=== PATIENT | male | born 1980 | race Caucasian/White ===

== ENCOUNTER 2024-08-01 14:59 | Emergency (ER) | payer OTHER, SELFPAY ==
--- NOTE | ~2024-08-01 | CT_ITS ---
CLINICAL HISTORY: LLQ pain CT Abdomen and Pelvis W Contrast COMPARISON: None FINDINGS: Normal liver. Normal spleen. Normal kidneys. Normal adrenal glands. Normal pancreas. Distended gallbladder with adjacent fat stranding. No visible cholelithiasis. No biliary dilation. No evidence of bowel obstruction or colitis. Normal-appearing appendix. Poorly distended bladder. Mildly enlarged prostate. No ascites. No pneumoperitoneum. No lymphadenopathy. No acute fracture. No abdominal aortic aneurysm. IMPRESSION: Findings suspicious for acute cholecystitis. Please correlate with clinical findings. Consider ultrasound if indicated. This document has been electronically signed by: Shaun Day MD on 08/01/2024 23:34:40
[2024-08-01 15:06] VITALS: BP 144/90; PULSE 111; RESP 18; TEMP 36.7; O2SAT 98; BMI 27.4
--- NOTE | 2024-08-01 15:14 | ED.GENADULT ---
HPI - General Adult General Chief complaint: Abdominal Pain Stated complaint: abd pain, pcp sent for CT scan Time Seen by Provider: 08/01/24 21:39 Source: patient Mode of arrival: ambulatory Limitations: no limitations History of Present Illness ED Provider: Dr. Samantha Platt HPI narrative: Patient comes to the emergency room complaining of 1 week left lower quadrant pain. Patient states that about a week ago he had 1 episode of diarrhea. Patient denies any significant pain at this time, no fever chills, no hematuria or dysuria. Patient states that occasionally he feels a bit of left-sided flank pain but it is intermittent. Denies hematuria. To patient's knowledge she has never had any abdominal surgeries or passed kidney stones Related Data Previous Rx's ?Medication ?Instructions ?Recorded hyoscyamine sulfate 0.125 mg tablet 0.125 mg PO QID PRN dyspepsia #14 08/02/24 tabs Allergies Allergy/AdvReac Type Severity Reaction Status Date / Time codeine Allergy Anaphylaxis Verified 08/01/24 15:07 Review of Systems Review of Systems: Constitutional : No Weight loss, No Fever, No Chills, No Night Sweats, No Fatigue, No Malaise ENT/Mouth : No Hearing loss, No Ear Pain, No Nasal Congestion, No Sinus Pain, No Hoarseness, No sore throat, No Rhinorrhea, No Swallowing Difficulty Eyes: No Eye Pain, No Swelling, No Redness, No Foreign Body, No Discharge, No Vision Changes Cardiovascular : No Chest Pain, No SOB, No Dyspnea on Exertion, No Orthopnea, No Edema, No Palpitations Respiratory : No Cough, No Sputum, No Wheezing, No Smoke Exposure, No Dyspnea Gastrointestinal : No Nausea, No Vomiting, had 1 episode of Diarrhea, No Constipation, complaining of left lower quadrant pain radiating towards the back, seems to be worse with eating. Genitourinary : no irregular bleeding, No Dysuria, No Urinary Frequency, No Hematuria, No Urinary Incontinence, No Urgency, complaining of mild intermittent Flank Pain, No Urinary Flow Changes, No Hesitancy Musculoskeletal : No joint pain, No Myalgias, No Joint Swelling Skin : No Skin Lesions, No rash Neuro : No Weakness, No Numbness, No Paresthesias, No Loss of Consciousness, No Dizziness, No Headache Psych : No Anxiety/Panic, No Depression, No SI/HI/AH/VH, No Social Issues, Heme/Lymph: No Bruising, No Bleeding,No Lymphadenopathy Endocrine : No Polyuria, No Polydipsia, No Temperature Intolerance [facility] Social History Social History Alcohol intake: current Alcohol intake frequency: holidays/special occasions only Smoked in Last 30 Days: No Use of substances other than those prescribed or required for medical reasons: No Advance Directives: No Advance Directives Information Provided: No Physical Exam ED Vital Signs: Vital Signs - 24 hr 08/01/24 15:06 08/01/24 21:43 08/02/24 00:06 Temperature 98.1 F 97.9 F 98.2 F Pulse Rate 111 H 98 76 Respiratory Rate 18 18 18 Blood Pressure 144/90 H 145/95 H 146/91 H Pulse Oximetry 98 100 96 Oxygen Delivery Method Room Air Room Air Room Air BMI result Body Mass Index 27.4 Const Other: Appearance: Alert. Oriented X3. No acute distress. Well-appearing Eyes: Pupils equal, round and reactive to light. ENT: Pharynx normal. Neck: Normal inspection. Neck supple. No lymph nodes noted. No crepitus CVS: Normal heart rate and rhythm. Pulses normal. Normal S1 and S2 Respiratory: No respiratory distress. Breath sounds normal. No Wheezing. No rales Abdomen: Soft and nontender. No rigidity. No distention. No rebound no guarding, no CVA tenderness Skin: Skin warm and dry. Normal skin color. Normal skin turgor. Extremities: No lower extremity edema. No Lacerations. No Rash Neuro: Oriented X 3. No motor deficit. No sensory deficit. Moving all extremities. No slurred speech. CN 2 through 12 grossly intact Psych: calm, cooperative, normal affect Course Course Course Narrative: RME, this is a rapid medical exam performed by Mikhail Joel please refer to primary provider for complete H&P- 44-year-old male presents for evaluation abdominal pain in the left lower quadrant in his worse after eating. He reports that his doctor sent him here for a CT scan as outpatient testing is delayed hour about a week Medications Administered Discontinued Medications Generic Name Dose Route Start Last Admin Trade Name Freq PRN Reason Stop Dose Admin Iohexol 85 ml 08/01/24 22:28 08/01/24 22:29 Iohexol 350 Mg/Ml 100 Ml Infus..Btl IV 08/01/24 22:29 85 ml ONCE ONE Administration Medical Decision Making Medical Decision Making [facility] Narrative: My interpretation of labs: Normal hematology, normal white blood cell count, normal chemistry. Normal LFTs, normal lipase CT scan: Fundus suspicious for acute cholecystitis. -However, patient has no epigastric or right upper quadrant pain. Patient has negative Baldwin's sign. Patient's LFTs are normal -clinically, patient has no signs of acute cholecystitis. Patient states that even the left lower quadrant pain which she had before is not as bad. Patient states that his PCP sent a prescription for him Discussed with the patient that if in the future he has any epigastric or right lower quadrant pain with eating or has any other upper abdominal pain, he needs to follow-up with his PCP or return to the emergency room. Differential Diagnosis Differential Diagnoses: The differential diagnosis associated with the presentation includes (Diverticulitis, SBO, colitis) Lab Data [facility] Lab Attestation statement: I reviewed the patient's lab results. 08/01/24 17:05 08/01/24 17:05 Labs: Lab Results 08/01/24 08/01/24 Range/Units 17:05 22:34 WBC 9.6 (4.8-10.8) X10*3/uL RBC 5.74 (4.60-5.80) X10*6/uL Hgb 16.5 (14.0-18.0) g/dl Hct 48.0 (42.0-52.0) % MCV 83.6 (80.0-98.0) fL MCH 28.7 (27.0-33.0) pg MCHC 34.4 (31.0-36.0) g/dl RDW 12.4 (11.0-16.0) % Plt Count 222 (160-400) X10*3/uL MPV 9.0 L (9.4-12.4) fL Immature Gran % (Auto) 0.5 H (0.0-0.4) % Neut % (Auto) 68.1 (45-73) % Lymph % (Auto) 21.8 (20-40) % [place] % (Auto) 8.5 (2-11) % Eos % (Auto) 0.9 (0-4) % Baso % (Auto) 0.2 (0-2) % Lymph # (Auto) 2.1 (1.2-4.9) X10*3/uL [place] # (Auto) 0.8 (0.1-1.2) X10*3/uL Eos # (Auto) 0.1 (0.0-0.4) X10*3/uL Baso # (Auto) 0.0 (0.0-0.2) X10*3/uL Abs Immat Gran (auto) 0.05 H (0.00-0.03) X10*3/uL Absolute Neuts (auto) 6.6 (2.0-8.3) x10*3/uL Absolute Nucleated RBC 0.000 (0.0-0.012) X10*3/uL Nucleated RBC % (auto) 0.0 (0.0-0.2) /100WBC Sodium 138 (135-145) mmol/L Potassium 4.5 (3.3-5.1) mmol/L Chloride 109 H (96-108) mmol/L Carbon Dioxide 25 (22-29) mmol/L Anion Gap 9 L (12-20) BUN 11 (9-16) mg/dL Creatinine 0.95 (0.5-1.4) mg/dL Estim Creat Clear Calc 94.0 Estimated GFR > 60 Random Glucose 98 (60-115) mg/dL Calcium 9.1 (8.4-10.2) mg/dL Total Bilirubin 0.6 (0.0-1.0) mg/dL AST 20 (5-37) U/L ALT 30 (0-40) U/L Alkaline Phosphatase 97 (39-117) U/L Total Protein 8.0 (6.5-8.0) g/dL Albumin 4.5 (3.5-5.0) g/dL Lipase 29 (8-78) U/L Urine Color Dark Yellow Urine Appearance Clear Urine pH 5.0 (5.0-9.0) Ur Specific [place] >= 1.030 H (1.005-1.025) Urine Protein Trace (Neg-Trace) mg/dL Urine Glucose (UA) Negative (Negative) mg/dL Urine Ketones 40 (Negative) mg/dL Urine Blood Negative (Negative) Urine Nitrite Negative (Negative) Ur Leukocyte Esterase Negative (Negative) Urine RBC 0-2 (0-2) /HPF Urine WBC 0-5 (0-5) /HPF Ur Squamous Epith Cells 0-2 (0-2) /HPF Urine Bacteria None Seen (None Seen) Hyaline Casts 0-2 (0-2) /LPF Independent Interpretation I performed an independent interpretation of an: CT Scan Radiology Impression Discussion of test interpretation with radiology: I have reviewed the radiologist's reading. Radiologist Impression: Normal liver. Normal spleen. Normal kidneys. Normal adrenal glands. Normal pancreas. Distended gallbladder with adjacent fat stranding. No visible cholelithiasis. No biliary dilation. No evidence of bowel obstruction or colitis. Normal-appearing appendix. Poorly distended bladder. Mildly enlarged prostate. No ascites. No pneumoperitoneum. No lymphadenopathy. No acute fracture. No abdominal aortic aneurysm. IMPRESSION: Findings suspicious for acute cholecystitis. Please correlate with clinical findings. Consider ultrasound if indicated. Discharge Plan Discharge Clinical Impression: Abdominal pain Patient Disposition: Home, Self-Care Instructions: Abdominal Pain (ED) Additional Instructions: Please follow-up with your primary care physician tomorrow. If you have any worsening or new symptoms, please return to the emergency room or call 911 Prescriptions: New hyoscyamine sulfate 0.125 mg tablet 0.125 mg PO QID PRN (Reason: dyspepsia) Qty: 14 0RF Print Language: Serbian
[2024-08-01 17:09] LABS: MANUAL DIFF FLAG NO
[2024-08-01 17:13] LABS: Basophils Percent Auto 0.2 % (0-2); Eosinophils Absolute Auto 0.1 X10*3/uL (0.0-0.4); Eosinophils Percent Auto 0.9 % (0-4); Hemoglobin 16.5 g/dl (14.0-18.0); Imm Gran Abs Auto 0.05 X10*3/uL (0.00-0.03); Imm Gran Pct Auto 0.5 % (0.0-0.4); Lymphocytes Absolute Auto 2.1 X10*3/uL (1.2-4.9); Lymphocytes Percent Auto 21.8 % (20-40); Mean Corpuscular HGB Conc 34.4 g/dl (31.0-36.0); Mean Corpuscular Hemoglobin 28.7 pg (27.0-33.0); Mean Corpuscular Volume 83.6 fL (80.0-98.0); Monocytes Absolute Auto 0.8 X10*3/uL (0.1-1.2); Monocytes Percent Auto 8.5 % (2-11); Neutrophils Absolute Auto 6.6 x10*3/uL (2.0-8.3); Neutrophils Percent Auto 68.1 % (45-73); Platelet Count 222 X10*3/uL (160-400); Red Blood Count 5.74 X10*6/uL (4.60-5.80); Red Cell Distribution Width 12.4 % (11.0-16.0); White Blood Count 9.6 X10*3/uL (4.8-10.8)
[2024-08-01 17:27] LABS: Alanine Aminotransferase 30 U/L (0-40); Albumin Level 4.5 g/dL (3.5-5.0); Alkaline Phosphatase 97 U/L (39-117); Anion Gap 9 (12-20); Aspartate Amino Transferase 20 U/L (5-37); Bilirubin Total 0.6 mg/dL (0.0-1.0); Blood Urea Nitrogen 11 mg/dL (9-16); Calcium 9.1 mg/dL (8.4-10.2); Carbon Dioxide 25 mmol/L (22-29); Chloride 109 mmol/L (96-108); Estimated Glomerular Filt Rate > 60; Glucose Random 98 mg/dL (60-115); Lipase 29 U/L (8-78); Potassium 4.5 mmol/L (3.3-5.1); Sodium 138 mmol/L (135-145)
[2024-08-01 21:43] VITALS: BP 145/95; PULSE 98; RESP 18; TEMP 36.6; O2SAT 100
[2024-08-01] MEDS: iohexoL 350 MG/ML 100 ML INFUS..BTL 85 ML IV (22:29)
[2024-08-01 22:40] LABS: Appearance Urine Clear; Color Urine Dark Yellow; Glucose Urine UA Negative (Negative); Leukocyte Esterase Urine Negative (Negative); Nitrite Urine Negative (Negative); Specific Gravity - Urine >= 1.030 (1.005-1.025); Urine Blood Negative (Negative); Urine Ketones 40 mg/dL (Negative); Urine Protein Trace mg/dL (Neg-Trace)
[2024-08-01 22:42] LABS: Bacteria Urine None Seen (None Seen); Hyaline Casts Urine 0-2 /LPF (0-2); RBC Urine 0-2 /HPF (0-2); Squamous Epithelial Cell Urine 0-2 /HPF (0-2); WBC Urine 0-5 /HPF (0-5)
[2024-08-02 00:06] VITALS: BP 146/91; PULSE 76; RESP 18; TEMP 36.8; O2SAT 96
[2024-08-02] MEDS: Dicyclomine HCl 10 MG CAPSULE PO (01:26)
[2024-08-02 01:29] VITALS: BP 148/88; PULSE 78; RESP 16; TEMP 36.7; O2SAT 96
== END 2024-08-02 01:31 | disposition home or self-care (01) ==
PROVIDERS: Physician Assistant; Emergency Provider Emergency Medicine; PCP Internal Medicine
DX: R10.32 Left lower quadrant pain (principal)
CPT/HCPCS: 36415; 74177; 80053; 81001; 83690; 85025; 99284; Q9967

== ENCOUNTER → 2024-08-01 15:15 | Outpatient (BNV) | payer OTHER, SELFPAY | PROVIDERS: Emergency Provider Emergency Medicine; PCP Internal Medicine; Visit Provider Radiology Diagnostic Radiology | DX: R10.32 Left lower quadrant pain (principal) | CPT/HCPCS: 74177 ==

== ENCOUNTER 2024-08-19 12:10 | Inpatient (IN) | payer OTHER, SELFPAY ==
[2024-08-19] VITALS (14 sets, daily range): BP systolic 114–135; BP diastolic 67–85; PULSE 74–123; RESP 12–28; TEMP 36.2–37.1; O2SAT 96–99; BMI 26.4
--- NOTE | ~2024-08-19 | XR_ITS ---
EXAMINATION: XR CHEST CLINICAL INFORMATION: s/p ERCP, with low )2 sats COMPARISON: None available. TECHNIQUE: Frontal view of the chest was obtained. FINDINGS: Linear opacities lung bases. Poor inspiration. Prominence of the interstitial markings. No pneumothorax. Cardiomediastinal silhouette appears prominent. Altered level thoracic and upper lumbar spondylosis. Gas-filled prominent small and large intestine with air-fluid levels in the left upper quadrant abdomen. XR/XR chest 1V IMPRESSION: Consider pulmonary edema and bilateral lung bases atelectasis. Cardiomegaly versus pericardial effusion. Ileus versus bowel obstruction. Electronically signed by: Yrn Marina MD 08/21/2024 01:00 PM EST
--- NOTE | ~2024-08-19 | XR_ITS ---
EXAMINATION: XR ABDOMEN KUB CLINICAL INDICATION: s/p ERCP with low O2 sat COMPARISON: None available. TECHNIQUE: AP view of the abdomen. FINDINGS: There is moderate gas seen throughout the small bowel loops and colon following ERCP. Minimal oral contrast is seen in the right colon. The postsurgical changes along the right upper mid quadrant from recent intervention. There is excreted urinary contrast opacifying the bladder which is normal caliber. No no bony abnormality seen. A biliary stent is seen in the right upper quadrant. Gallbladder removed with a drainage catheter in the gallbladder fossa XR/XR KUB IMPRESSION: Moderate gas in the colon likely secondary ERCP with new biliary stent in place. Gallbladder has been surgically removed with surgical drainage in the gallbladder fossa. Electronically signed by: Manuel Shipman MD 08/21/2024 01:35 PM [facility]
--- NOTE | ~2024-08-19 | US_ITS ---
EXAMINATION: US ABDOMEN LIMITED HISTORY: RUQ pain, +murphys, ?acute parag TECHNIQUE: Real-time grayscale ultrasound imaging of the right upper quadrant was performed and images were reviewed. COMPARISON: Correlation is made with a CT of the abdomen with contrast dated 08/01/2024. FINDINGS: Liver: The right lobe of the liver measures 15.1 cm in size. The left lobe of the liver measures 8.9 cm in size. The liver demonstrates normal homogeneous echotexture. No focal mass or intrahepatic biliary ductal dilatation is identified. No focal mass or intrahepatic biliary ductal dilatation is identified. There is normal hepatopedal flow in the portal vein. Gallbladder and biliary tree: The gallbladder is distended and demonstrates echogenic bile. There is a shadowing calcification in the region of the gallbladder neck which likely represents a calculus. The gallbladder wall is thick measuring up to 5 mm in thickness. There is no pericholecystic fluid. There is a positive sonographic Baldwin sign according to the technologist. The common bile duct is normal in caliber measuring 3 mm. Right Kidney: The right kidney measures 10.1 cm in length. The right kidney is unremarkable, without evidence of masses, hydronephrosis, or calculi. Pancreas: The pancreatic head, neck, and body are unremarkable. The pancreatic tail is obscured by bowel gas. Abdominal aorta and inferior vena cava: The visualized portions of the abdominal aorta and inferior vena cava are normal in caliber. There is no free fluid in the right upper quadrant. US/US abdomen limited IMPRESSION: 1. Findings consistent with acute cholecystitis as described. 2. Mild hepatomegaly. Electronically signed by: Jean Carlos Tee MD 08/19/2024 02:42 PM [facility] [place]
--- NOTE | ~2024-08-19 | XR_ITS ---
EXAMINATION: XR CHEST 2 VIEWS HISTORY: follow up; eval atelectasis vs edema COMPARISON: Comparison is made with the prior examination dated 08/21/2024. FINDINGS: PA and lateral views of the chest are submitted. There are low lung volumes. There is linear subsegmental atelectasis at both lung bases. The upper lung zones are clear. There is no pleural effusion, pneumothorax, or pulmonary vascular congestion. The heart is normal in size. The bones are intact. There is gas throughout the colon and the visualized upper abdomen. XR/XR chest 2V IMPRESSION: Low lung volumes. Bibasilar subsegmental atelectasis. Electronically signed by: Jean Carlos Tee MD 08/22/2024 07:47 AM EST
--- NOTE | ~2024-08-19 | FL_ITS ---
EXAMINATION: FL GUIDANCE ONLY HISTORY: INTRAOP CHOLANGIOGRAM COMPARISON: Correlation is made with a CT of the abdomen with contrast dated 08/01/2024. TECHNIQUE: Fluoroscopy time: 60 seconds. Cumulative Dose: 21.32 mGy. Images: 16. FINDINGS: Images demonstrate opacification of the common bile duct which is normal in caliber. Multiple small filling defects are noted which likely represent air bubbles. Small calculi cannot be excluded. The intrahepatic bile ducts are normal in caliber. Contrast is seen in the duodenum. There is a large amount of extravasated contrast noted from the region of the gallbladder fossa. FL/FL guidance in OR IMPRESSION: Fluoroscopy during procedure. Please see procedure report for additional information. Electronically signed by: Jean Carlos Tee MD 08/21/2024 08:53 AM [facility]
--- NOTE | ~2024-08-19 | CT_ITS ---
EXAMINATION: CT ABDOMEN PELVIS WITH IV CONTRAST HISTORY: Status post cholecystectomy. Evaluate for biloma. COMPARISON: Comparison is made with the prior examination dated 08/01/2024. TECHNIQUE: CT scan of the abdomen and pelvis was performed following administration of 85 mL Omnipaque 350 using standard departmental protocol. Coronal and sagittal reformatted images were generated and reviewed. The patient received oral contrast material. This CT exam was performed with one or more of the following dose reduction techniques: automated exposure control, adjustment of the mA and/or kV according to patient size, use of iterative reconstruction technique. DLP: 739 mGy-cm FINDINGS: LOWER CHEST: There are airspace opacities at both lung bases consistent with atelectasis or pneumonia. There are trace bilateral pleural effusions. CARDIOVASCULATURE: The heart is normal in size. There is no pericardial effusion. LIVER: The liver is normal in size and contour. No liver mass is identified. The hepatic and portal veins are patent. GALLBLADDER / BILE DUCTS: The patient is status post cholecystectomy. A CHRISTOPHER drain is seen in the gallbladder fossa. There is a small amount of fluid in the gallbladder fossa. No loculated collection is seen. SPLEEN: The spleen is normal in size. No focal splenic lesion is identified. PANCREAS: The pancreas is unremarkable in appearance. ADRENAL GLANDS: Within normal limits. KIDNEYS/RETROPERITONEUM: No renal calculi are identified. There is no hydronephrosis. No renal masses are identified. LYMPH NODES: No abdominal or pelvic lymphadenopathy. VASCULATURE: The abdominal aorta is normal in caliber. MESENTERY/PERITONEUM: There is a small amount of free intraperitoneal gas, consistent with the recent surgery. No free fluid is seen. STOMACH: The stomach is unremarkable. SMALL BOWEL: There is mild diffuse dilatation of small bowel loops. A small amount of oral contrast is seen in the distal ileum. Findings likely represent ileus. COLON: There is gas throughout the colon, also compatible with ileus. APPENDIX: The appendix is unremarkable in appearance and is filled with oral contrast material. URINARY BLADDER/PELVIC ORGANS: The urinary bladder is unremarkable. The prostate is normal in size. BONES / SOFT TISSUES: No suspicious bony or soft tissue abnormalities. CT/CT abdomen pelvis w IV con IMPRESSION: 1. Status post cholecystectomy. CHRISTOPHER drain and a small amount of fluid in the gallbladder fossa without evidence of a loculated fluid collection. 2. Findings suggestive of ileus as described. 3. Airspace opacity at the lung bases consistent with atelectasis or pneumonia. Electronically signed by: Jean Carlos Tee MD 08/21/2024 10:52 AM [facility]
--- NOTE | ~2024-08-19 | FL_ITS ---
EXAMINATION: FL GUIDANCE ONLY HISTORY: ERCP COMPARISON: Correlation is made with a contrast-enhanced CT of the abdomen performed earlier in the day.. TECHNIQUE: Fluoroscopy time: 104.1 seconds. Cumulative Dose: 34.20 mGy. Images: 7. FINDINGS: Images demonstrate opacification of the common bile duct and intrahepatic biliary radicles. There is no dilatation of the common bile duct. No definite filling defects is seen. The final images demonstrate a stent in place. FL/FL guidance in OR IMPRESSION: Fluoroscopy during procedure. Please see procedure report for additional information. Electronically signed by: Jean Carlos Tee MD 08/21/2024 02:55 PM [facility]
--- NOTE | 2024-08-19 12:27 | ED.ABDPAIN ---
HPI - Abdominal Pain General Chief Complaint: Abdominal Pain Stated Complaint: Abd pain, sent by Time Seen by Provider: 08/19/24 12:38 History of Present Illness ED Provider: Dr. Akins HPI narrative: 44 y/o M patient; without significant PMH; presents from home with report of significant RUQ abdominal pain associated with nausea this morning. He states he has had the pain intermittently for approx 5 weeks. He had a CT scan which showed acute cholecystitis on 08/01 and was referred for an US as well as follow up with Dr. Ross. The patient presents today due to worsening of his symptoms. He otherwise denies: fever or chills, SOB, cough/congestion, diarrhea. Related Data Previous Rx's ?Medication ?Instructions ?Recorded hyoscyamine sulfate 0.125 mg tablet 0.125 mg PO QID PRN dyspepsia #14 08/02/24 tabs Allergies Allergy/AdvReac Type Severity Reaction Status Date / Time codeine Allergy Anaphylaxis Verified 08/19/24 12:31 Review of Systems Review of Systems Yes all other systems are reviewed and are negative [facility] Past Medical History Attestation statement: The following information was validated with the patient. Source: old records reviewed Social History Social History Alcohol intake: current Alcohol intake frequency: holidays/special occasions only Smoked in Last 30 Days: No Use of substances other than those prescribed or required for medical reasons: No Advance Directives: No Advance Directives Information Provided: Yes Physical Exam ED Vital Signs: Vital Signs - 24 hr 08/19/24 12:27 08/19/24 14:33 Temperature 98.0 F 98.7 F Pulse Rate 123 H 74 Respiratory Rate 16 16 Blood Pressure 122/83 124/76 Pulse Oximetry 99 96 Oxygen Delivery Method Room Air BMI result Body Mass Index 26.4 Patient is afebrile, mildly tachycardic, and hemodynamically stable. Const General: cooperative HENMT Head: Yes normal to inspection and Yes atraumatic Eyes General: appearance normal, both eyes and all related structures Pupils: Equal, round and reactive pupils present EOM: EOMs intact bilaterally Neck Neck: Yes normal visual inspection, Yes full ROM, Yes supple and No tender Chest Chest palpation & inspection: normal inspection of the chest and normal palpation of entire chest wall Resp Effort & Inspection: normal respiratory effort, able to speak in complete sentences, no cough and no respiratory distress Auscultation: clear to auscultation bilaterally Cardio Rate: tachycardic Rhythm: regular rhythm Peripheral pulses: Peripheral pulses 2+ throughout GI Other: + RUQ abd tenderness Inspection: No Abdominal wall edema and No distended Palpation (GI): Soft to palpation, not firm, no guarding and not rigid Auscultation: normal bowel sounds Back/Spine/Pelvis Back: No back tenderness Neuro Cranial nerves: Yes Equal, round and reactive pupils present Course Course Course Narrative: This is a Rapid Medical Examination (RME) performed by Elvis Fuentes PA-C in triage. Full HPI, ROS, assessment and treatment plan per primary provider in the Main ED. 44 yo male here for eval of intermittent RUQ pain x3-4 weeks, worsening acutely today. had CT on 08/01/24 which showed findings concerning for acute cholecystitis. he was called w/ results and advised to f/u with gen surg outpatient. appointment scheduled for 08/29/24. called pcp today d/t worsening pain, advised to come to ED. assoc nausea, no vomiting. + diaphoretic, bent over in pain, guarding abdomen. 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 Reviewed triage work up. Provided symptom management with Zofran and Toradol, patient is NPO. Labs reviewed. No leukocytosis. LA 2.2 - ordered for 1L IVF. Surgery consulted. US consistent with acute parag. Started on Zosyn. Plan: Admit to surgery Condition: Stable Medical Decision Making Lab Data 08/19/24 12:53 08/19/24 12:53 Labs: Lab Results 08/19/24 Range/Units 12:53 WBC 9.3 (4.8-10.8) X10*3/uL RBC 5.66 (4.60-5.80) X10*6/uL Hgb 16.0 (14.0-18.0) g/dl Hct 47.5 (42.0-52.0) % MCV 83.9 (80.0-98.0) fL MCH 28.3 (27.0-33.0) pg MCHC 33.7 (31.0-36.0) g/dl RDW 12.1 (11.0-16.0) % Plt Count 255 (160-400) X10*3/uL MPV 9.1 L (9.4-12.4) fL Immature Gran % (Auto) 0.4 (0.0-0.4) % Neut % (Auto) 73.4 H (45-73) % Lymph % (Auto) 16.5 L (20-40) % [place] % (Auto) 9.0 (2-11) % Eos % (Auto) 0.5 (0-4) % Baso % (Auto) 0.2 (0-2) % Lymph # (Auto) 1.5 (1.2-4.9) X10*3/uL [place] # (Auto) 0.8 (0.1-1.2) X10*3/uL Eos # (Auto) 0.1 (0.0-0.4) X10*3/uL Baso # (Auto) 0.0 (0.0-0.2) X10*3/uL Abs Immat Gran (auto) 0.04 H (0.00-0.03) X10*3/uL Absolute Neuts (auto) 6.9 (2.0-8.3) x10*3/uL Absolute Nucleated RBC 0.000 (0.0-0.012) X10*3/uL Nucleated RBC % (auto) 0.0 (0.0-0.2) /100WBC Sodium 141 (135-145) mmol/L Potassium 4.0 (3.3-5.1) mmol/L Chloride 103 (96-108) mmol/L Carbon Dioxide 24 (22-29) mmol/L Anion Gap 18 (12-20) BUN 10 (9-16) mg/dL Creatinine 1.02 (0.5-1.4) mg/dL Estim Creat Clear Calc 87.5 Estimated GFR > 60 Random Glucose 150 H (60-115) mg/dL Lactic Acid 2.2 H* (0.5-2.0) mmol/L Calcium 9.3 (8.4-10.2) mg/dL Magnesium 2.0 (1.6-2.6) mg/dL Total Bilirubin 0.4 (0.0-1.0) mg/dL AST 18 (5-37) U/L ALT 22 (0-40) U/L Alkaline Phosphatase 87 (39-117) U/L Total Protein 8.1 H (6.5-8.0) g/dL Albumin 4.4 (3.5-5.0) g/dL Lipase 28 (8-78) U/L Radiology Impression Discussion of test interpretation with radiology: I have reviewed the radiologist's reading. Radiologist Impression: EXAMINATION: US ABDOMEN LIMITED HISTORY: RUQ pain, +murphys, ?acute parag TECHNIQUE: Real-time grayscale ultrasound imaging of the right upper quadrant was performed and images were reviewed. COMPARISON: Correlation is made with a CT of the abdomen with contrast dated 08/01/2024. FINDINGS: Liver: The right lobe of the liver measures 15.1 cm in size. The left lobe of the liver measures 8.9 cm in size. The liver demonstrates normal homogeneous echotexture. No focal mass or intrahepatic biliary ductal dilatation is identified. No focal mass or intrahepatic biliary ductal dilatation is identified. There is normal hepatopedal flow in the portal vein. Gallbladder and biliary tree: The gallbladder is distended and demonstrates echogenic bile. There is a shadowing calcification in the region of the gallbladder neck which likely represents a calculus. The gallbladder wall is thick measuring up to 5 mm in thickness. There is no pericholecystic fluid. There is a positive sonographic Baldwin sign according to the technologist. The common bile duct is normal in caliber measuring 3 mm. Right Kidney: The right kidney measures 10.1 cm in length. The right kidney is unremarkable, without evidence of masses, hydronephrosis, or calculi. Pancreas: The pancreatic head, neck, and body are unremarkable. The pancreatic tail is obscured by bowel gas. Abdominal aorta and inferior vena cava: The visualized portions of the abdominal aorta and inferior vena cava are normal in caliber. There is no free fluid in the right upper quadrant. US/US abdomen limited IMPRESSION: 1. Findings consistent with acute cholecystitis as described. 2. Mild hepatomegaly. Electronically signed by: Jean Carlos Tee MD 08/19/2024 02:42 PM [facility] Medications Administered Discontinued Medications Generic Name Dose Route Start Last Admin Trade Name Freq PRN Reason Stop Dose Admin Sodium Chloride 1,000 mls @ 999 mls/hr 08/19/24 13:45 08/19/24 13:37 Ns IV 08/19/24 14:45 999 mls/hr .Q1H1M JAMI Administration Ketorolac Tromethamine 15 mg 08/19/24 13:03 08/19/24 13:11 Ketorolac Tromethamine 15 Mg/Ml Vial IVPUSH 08/19/24 13:04 15 mg ONCE ONE Administration Ondansetron HCl 4 mg 08/19/24 13:03 08/19/24 13:11 Ondansetron Hcl 4 Mg/2 Ml Vial IVPUSH 08/19/24 13:04 4 mg ONCE ONE Administration Discharge Plan Discharge Patient Disposition: Admitted As Inpatient Prescriptions: No Action hyoscyamine sulfate 0.125 mg tablet 0.125 mg PO QID PRN (Reason: dyspepsia) Qty: 14 0RF Print Language: Vietnamese
[2024-08-19 13:03] LABS: MANUAL DIFF FLAG NO
[2024-08-19 13:05] LABS: Basophils Percent Auto 0.2 % (0-2); Eosinophils Absolute Auto 0.1 X10*3/uL (0.0-0.4); Eosinophils Percent Auto 0.5 % (0-4); Hematocrit 47.5 % (42.0-52.0); Imm Gran Abs Auto 0.04 X10*3/uL (0.00-0.03); Imm Gran Pct Auto 0.4 % (0.0-0.4); Lymphocytes Absolute Auto 1.5 X10*3/uL (1.2-4.9); Lymphocytes Percent Auto 16.5 % (20-40); Mean Corpuscular HGB Conc 33.7 g/dl (31.0-36.0); Mean Corpuscular Hemoglobin 28.3 pg (27.0-33.0); Mean Corpuscular Volume 83.9 fL (80.0-98.0); Mean Platelet Volume 9.1 fL (9.4-12.4); Monocytes Absolute Auto 0.8 X10*3/uL (0.1-1.2); Neutrophils Absolute Auto 6.9 x10*3/uL (2.0-8.3); Neutrophils Percent Auto 73.4 % (45-73); Platelet Count 255 X10*3/uL (160-400); Red Blood Count 5.66 X10*6/uL (4.60-5.80); Red Cell Distribution Width 12.1 % (11.0-16.0); White Blood Count 9.3 X10*3/uL (4.8-10.8)
[2024-08-19] MEDS: Ketorolac Tromethamine 15 MG/ML VIAL IVPUSH (13:11)
[2024-08-19] MEDS: ondansetron HCL 4 MG/2 ML VIAL IVPUSH ×2 (13:11→23:03)
[2024-08-19 13:22] LABS: Alanine Aminotransferase 22 U/L (0-40); Albumin Level 4.4 g/dL (3.5-5.0); Alkaline Phosphatase 87 U/L (39-117); Anion Gap 18 (12-20); Aspartate Amino Transferase 18 U/L (5-37); Bilirubin Total 0.4 mg/dL (0.0-1.0); Blood Urea Nitrogen 10 mg/dL (9-16); Calcium 9.3 mg/dL (8.4-10.2); Carbon Dioxide 24 mmol/L (22-29); Chloride 103 mmol/L (96-108); Creatinine Clr Calc Pharmacy 87.5; Estimated Glomerular Filt Rate > 60; Glucose Random 150 mg/dL (60-115); Lipase 28 U/L (8-78); Sodium 141 mmol/L (135-145); Total Protein 8.1 g/dL (6.5-8.0)
[2024-08-19 13:33] LABS: Lactic Acid 2.2 mmol/L (0.5-2.0)
[2024-08-19] MEDS: 0.9 % Sodium Chloride 1,000 ML 999 ML IV (13:37)
--- OUTSIDE RECORDS SUMMARY | 2024-08-19 13:52 | XMS_ITS | Clinical Summary ---
Author Organization [facility] Address [address] [place] [address] Care Team Providers Care Lead Painter Name Role Phone Iker Porras MD Primary Care Provider Source Comments PLEASE NOTE, if this patient is a minor, it may be UNLAWFUL to discuss sensitive information that is contained in these records (such as FAMILY PLANNING, MENTAL HEALTH or SUBSTANCE ABUSE) with the minor patient's parent or other person without the patient's specific authorization.[facility] Allergies Active Allergy Reactions Criticality Noted Date Comments Codeine Anaphylaxis High 02/07/2018 At age 1yr Medications cholecalciferol , vitamin D3, (VITAMIN D3) 2,000 unit capsule Take 1 Cap by mouth once daily 30 Cap 11 8 Active simethicone 80 mg tab Take 1 Tab by mouth 3 (three) times daily as needed (gas) 30 Tab 2 8 Active salicylic acid 40 % ptmdIndications :Verruca plantaris Apply 1 Applicator topically nightly at bedtime Trim patch to size and apply to each plantar wart at bedtime as directed. 6 Patch 1 8 Active Active Problems Problem Noted Date Diagnosed Date Need for hepatitis A vaccination 02/25/2018 Lactose intolerance 02/07/2018 Dry eye syndrome of both eyes 12/25/2017 Myopia of both eyes with astigmatism 12/25/2017 Resolved Problems Problem Noted Date Diagnosed Date Resolved Date Environmental allergies 02/07/2018 0807/2017 Seizures ([facility]) 02/07/2018 8 Immunizations Name Administration Dates Next Due Hep A, adult 03/01/2018 Hep B, Adult/Adol (ENERGIX/RECOMBIVAX) 8,03/01/2018 TDAP 03/15/2018 Family History Medical History Relation Name Comments Heart Problems Mother Relation Name Status Comments Father Alive Mother Alive Social History Tobacco Use Types Packs/Day Years Used Date Smoking Tobacco: Never Smokeless Tobacco: Never Tobacco Cessation:Counseling Given: Yes Alcohol Use Standard Drinks/Week Comments No 0 (1 standard drink = 0.6 oz pur e alcohol) Social Connections Answer Date Recorded Social Connections and Isolation 0 03/10/2019 Financial Resource Strain Answer Date R ecorded Financial Resource Strain 0 2018 Stress Answer Date Recorded Stress 0 03/10/2019 Physical Activity Answer Date Recorded Physical Activity 0 03/10/2019 Food Insecurity Answer Date Recorded Food 0 03/10/2019 Transportation Needs Answer Date Record ed Transportation 0 03/10/2019 Housing Stability Answer Date Recorded Housing 0 03/10/2019 Safety and Environment Answer Date Kirk rded Safety 0 03/10/2019 Utilities Answer Date Recorded Utilities 0 03/10/2019 Employment Answer Date Recorded Employment 0 03/10/2019 Sex and Gender Information Value Date Recorded Sex Assigned at Male 02/07/2018 11:56 AM PDT Legal Sex Male 6:47 AM PDT Gender Identity Male 02/07/2018 11:56 AM PDT Sexual Orientation Straight 02/07/2018 11 :56 AM PDT Last Filed Vital Signs Vital Sign Reading Time Taken Comments Blood Pressure 121/82 05/11/2018 10:42 AM EDT Pulse 77 05/11/2018 10:42 AM EDT Temperature 36.4 ??C (97.5 ??F) 05/11/2018 10:42 AM E DT Respiratory Rate 16 04/02/2018 1:34 PM EDT Oxygen Saturation 97% 05/11/2018 10:42 AM EDT Inhaled Oxygen Concentration - - Weight 69.4 kg (153 lb) 05/11/2018 10:42 AM EDT Height 172.7 cm (5' 8 ) 05/11/2018 10:42 AM EDT Body Mass Index 23.26 05/11/2018 10:42 AM EDT Plan of Treatment Not on file Insurance [facility] [employer] [place] Care Teams Lead Painter Relationship Specialty Start Date End Date Iker Porras MD [address] [place] [id number] PCP - General Family Medicine, Physician 11/28/19
--- NOTE | 2024-08-19 14:23 | PC.NURSE ---
Bedside u/s completed at this time.
[2024-08-19 15:03] LABS: Reflex Lactate? Lactic Acid Added
[2024-08-19] MEDS: Piperacillin Sodium/Tazobactam 4.5 GM in 0.9 % Sodium Chloride 100 ML IV (15:23)
--- NOTE | 2024-08-19 15:36 | PHA.MEDREC ---
Addendum entered by Caro Alston RPh 08/19/24 15:47: Med rec was reviewed by Jori. Original Note: Pharmacy Consult ? Medication Reconciliation Pharmacy has completed the medication reconciliation. Spoke with patient and he confirmed what he was taking. He stated he finished the Hyoscyamine 0.125mg regimen in the last few weeks but still has the Dicyclomine 10mg tabs as needed and stated he took one this morning.
[2024-08-19 15:43] LABS: ~Lactic Acid-LAB USE ONLY 0.8 mmol/L (0.5-2.0)
--- NOTE | 2024-08-19 16:41 | PM.HPGS ---
History of Present Illness History of Present Illness Date of Service: 08/19/24 Chief complaint: Abd pain, sent by Dr Layne: Miguel Whitaker is a 44 year old male who was in the emergency room a couple days ago complaining abdominal pain right upper quadrant pain in the CT scan of the abdomen was carried out after labs were all normal but it did show that there was maybe some inflammatory changes around the gallbladder which was distended and that he may have had some biliary disease. He did improve clinically and so was discharged from the emergency room with the plan being to follow up with the surgeons as an outpatient. This was the plan however yesterday into today he started having more abdominal pain which was worse with some nausea and little vomiting and as a result he returned to the emergency room. Here his labs were still within normal limits but was tender in the right upper quadrant an ultrasound shows some inflammatory thickened changes around the gallbladder with a positive Baldwin sign. As a result he is coming in as an admission with plan to carry out laparoscopic cholecystectomy on this admission now Review of Systems Review of Systems: Yes all other systems are reviewed and are negative [facility] Past Medical History Medical History (Updated 08/19/24 @ 16:35 by Gini David RN) Hypercholesteremia Epilepsy Surgical History Surgical History (Updated 08/19/24 @ 16:35 by Gini David RN) H/O wisdom tooth extraction Social History Social History Alcohol intake: current Alcohol intake frequency: holidays/special occasions only Smoked in Last 30 Days: No Use of substances other than those prescribed or required for medical reasons: No Advance Directives: No Advance Directives Information Provided: Yes Meds Allergies Allergy/AdvReac Type Severity Reaction Status Date / Time codeine Allergy Severe Anaphylaxis Verified 08/19/24 16:35 Active Medications: Current Medications Acetaminophen (Acetaminophen 325 Mg Tablet) 650 mg PO Q6H PRN PRN Reason: Pain, Mild 1-3,fever,headache Calcium Carbonate (Calcium Carbonate 750 Mg Tab.Chew) 750 mg PO Q4H PRN PRN Reason: Heartburn Magnesium Hydroxide (Milk Of Magnesia 30 Ml Oral.Susp) 30 ml PO DAILY PRN PRN Reason: Constipation Melatonin (Melatonin 3 Mg Tablet) 6 mg PO BEDTIME PRN PRN Reason: Insomnia Sodium Chloride (0.9 % Sodium Chloride Flush 3 Ml Syringe) 3 ml IVFLUSH QSHIFT [facility] Home Medications ?Medication ?Instructions ?Recorded ?Confirmed ?Last Taken ?Type acetaminophen 500 mg tablet 500 mg PO DAILY PRN Pain 08/19/24 08/19/24 Unknown History dicyclomine 10 mg capsule 10 mg PO TID PRN IBS 08/19/24 08/19/24 08/19/24 History simethicone 80 mg chewable tablet 80 mg PO BEDTIME PRN Gas Relief 08/19/24 08/19/24 Unknown History Physical Exam Vital Signs: Vital Signs: Last Vital Signs Temp 98.7 F 08/19/24 14:33 Pulse 74 08/19/24 14:33 Resp 16 08/19/24 14:33 BP 124/76 08/19/24 14:33 Pulse Ox 96 08/19/24 14:33 O2 Del Method Room Air 08/19/24 14:33 BMI result Body Mass Index 26.4 Const: General: cooperative, healthy appearing, comfortable and acute distress mild Orientation/consciousness: patient oriented x3 Eyes: Other: Nonicteric Resp: Effort & Inspection: normal respiratory effort Auscultation: clear to auscultation bilaterally Cardio: Rate: regular rate Rhythm: regular rhythm GI: Other: Abdomen is soft nondistended some mild tenderness in the right upper quadrant no guarding no rebound no peritoneal signs no masses Skin: Other: Nonicteric Neuro: General: patient oriented x3 Extrem: General: Yes normal to inspection Psych: Appearance: grossly normal Results Results Labs: Short CBC 08/19/24 Range/Units 12:53 WBC 9.3 (4.8-10.8) X10*3/uL Hgb 16.0 (14.0-18.0) g/dl Hct 47.5 (42.0-52.0) % Plt Count 255 (160-400) X10*3/uL BMP 08/19/24 12:53 Sodium 141 Potassium 4.0 Chloride 103 Carbon Dioxide 24 BUN 10 Creatinine 1.02 Calcium 9.3 Liver Function 08/19/24 Range/Units 12:53 Total Bilirubin 0.4 (0.0-1.0) mg/dL AST 18 (5-37) U/L ALT 22 (0-40) U/L Alkaline Phosphatase 87 (39-117) U/L Albumin 4.4 (3.5-5.0) g/dL Abdomen CT scan report/results: report reviewed and image reviewed CT scan - pelvis: report reviewed and image reviewed US - pelvic: report reviewed Additional studies: Patient: Miguel Whitaker MR#: [id number] : 1980 Acct:[id number] Age/Sex: 44 / M ADM Date: 08/19/24 Loc: HO.ED Attending Dr: Ordering Physician: Carrie Fuentes Date of Service: 08/19/24 Procedure(s): US abdomen limited Accession Number(s): [id number] cc: Gene Rivera MD; Carrie Fuentes~ EXAMINATION: US ABDOMEN LIMITED HISTORY: RUQ pain, +murphys, ?acute parag TECHNIQUE: Real-time grayscale ultrasound imaging of the right upper quadrant was performed and images were reviewed. COMPARISON: Correlation is made with a CT of the abdomen with contrast dated 08/01/2024. FINDINGS: Liver: The right lobe of the liver measures 15.1 cm in size. The left lobe of the liver measures 8.9 cm in size. The liver demonstrates normal homogeneous echotexture. No focal mass or intrahepatic biliary ductal dilatation is identified. No focal mass or intrahepatic biliary ductal dilatation is identified. There is normal hepatopedal flow in the portal vein. Gallbladder and biliary tree: The gallbladder is distended and demonstrates echogenic bile. There is a shadowing calcification in the region of the gallbladder neck which likely represents a calculus. The gallbladder wall is thick measuring up to 5 mm in thickness. There is no pericholecystic fluid. There is a positive sonographic Baldwin sign according to the technologist. The common bile duct is normal in caliber measuring 3 mm. Right Kidney: The right kidney measures 10.1 cm in length. The right kidney is unremarkable, without evidence of masses, hydronephrosis, or calculi. Pancreas: The pancreatic head, neck, and body are unremarkable. The pancreatic tail is obscured by bowel gas. Abdominal aorta and inferior vena cava: The visualized portions of the abdominal aorta and inferior vena cava are normal in caliber. There is no free fluid in the right upper quadrant. US/US abdomen limited IMPRESSION: 1. Findings consistent with acute cholecystitis as described. 2. Mild hepatomegaly. Electronically signed by: Jean Carlos Tee MD 08/19/2024 02:42 PM EST RP Dictated By: Jean Carlos Tee MD Signed By: <Electronically signed by Jean Carlos Tee MD in OV> 08/19/24 1442 DD/ 1410 TD/TT: 08/19/24 1420 Janitor Cleaner: nt: Miguel Whitaker MR#: [id number] : 1980 Acct:[id number] Age/Sex: 44 / M ADM Date: 08/01/24 Loc: HO.ED Attending Dr: Ordering Physician: Sean Joel Date of Service: 08/01/24 Procedure(s): CT abdomen pelvis w IV con Accession Number(s): [id number] cc: Gene Rivera MD; Sean Joel~ Report Number: [id number]: Total DLP = 528.00 mGy-cm CLINICAL HISTORY: LLQ pain CT Abdomen and Pelvis W Contrast COMPARISON: None FINDINGS: Normal liver. Normal spleen. Normal kidneys. Normal adrenal glands. Normal pancreas. Distended gallbladder with adjacent fat stranding. No visible cholelithiasis. No biliary dilation. No evidence of bowel obstruction or colitis. Normal-appearing appendix. Poorly distended bladder. Mildly enlarged prostate. No ascites. No pneumoperitoneum. No lymphadenopathy. No acute fracture. No abdominal aortic aneurysm. IMPRESSION: Findings suspicious for acute cholecystitis. Please correlate with clinical findings. Consider ultrasound if indicated. This document has been electronically signed by: Shaun Day MD on 08/01/2024 23:34:40 Dictated By: Shaun Day MD Signed By: <Electronically signed by Shaun Day MD in OV> 08/01/24 2335 DD/ 2334 TD/TT: 08/01/24 233 Janitor Cleaner: Assessment and Plan (1) Acute cholecystitis: Status: Acute Plan 44-year-old male with right upper quadrant pain some nausea x-ray findings consistent with acute cholecystitis Baldwin sign. Plan to go to the OR NPO IV fluids IV Zosyn for laparoscopic cholecystectomy. Risks and benefits were discussed with the patient including but not limited to bleeding infection possible open procedure possible bowel injury possible other organ injury possible common bile duct injury possible bile duct leak and despite this he wishes to proceed. Quality Stroke Does the patient have a stroke diagnosis?: No VTE Prior VTE?: No VTE Risk Level:: Surgical - low VTE Device Contraindication: N/A - Device Ordered VTE Drug Contraindication: Treatment Not Indicated Procedures Date of Service Date of Service: 08/19/24
--- NOTE | 2024-08-19 16:55 | HO.ANESPROP2 ---
HPI - Anesthesia Eval Consult details Narrative: 44-year-old healthy male presenting for laparoscopic cholecystectomy History notable for childhood epilepsy. Seizure-free since 5th grade. PMFSH Active Problems Active Problems: All Active Problems Acute cholecystitis (Acute) Past Medical History Medical History Hypercholesteremia Epilepsy Family History Family history of problems with anesthesia: No Surgical History Surgical History H/O wisdom tooth extraction History of Problems with Anesthesia: No Social History Social History Are you a primary career development coordinator/teacher to a significant other at home: No Do you presently have visiting nurse or other home services: No Alcohol intake: current Alcohol intake frequency: holidays/special occasions only Patient Tobacco Use Status: Never used Tobacco Smoked in Last 30 Days: No Use of substances other than those prescribed or required for medical reasons: No Have you been hit, kicked, punched, or otherwise hurt by someone within the past year? If so, by whom?: No Advance Directives: No Advance Directives Information Provided: No Advance Directives on File: No Recently lost weight without trying: No How much weight loss: Not applicable Eating poorly because of decreased appetite: No Nutrition screen score: 0 Nutrition Risks: No Nutritional Risk Poor oral hygiene: Yes (missing teeth throughout) Meds Allergies Allergy/AdvReac Type Severity Reaction Status Date / Time codeine Allergy Severe Anaphylaxis Verified 08/19/24 16:35 Active Medications: Current Medications Acetaminophen (Acetaminophen 325 Mg Tablet) 650 mg PO Q6H PRN PRN Reason: Pain, Mild 1-3,fever,headache Calcium Carbonate (Calcium Carbonate 750 Mg Tab.Chew) 750 mg PO Q4H PRN PRN Reason: Heartburn Magnesium Hydroxide (Milk Of Magnesia 30 Ml Oral.Susp) 30 ml PO DAILY PRN PRN Reason: Constipation Melatonin (Melatonin 3 Mg Tablet) 6 mg PO BEDTIME PRN PRN Reason: Insomnia Sodium Chloride (0.9 % Sodium Chloride Flush 3 Ml Syringe) 3 [facility] Medications ?Medication ?Instructions ?Recorded ?Confirmed ?Last Taken ?Type acetaminophen 500 mg tablet 500 mg PO DAILY PRN Pain 08/19/24 08/19/24 Unknown History dicyclomine 10 mg capsule 10 mg PO TID PRN IBS 08/19/24 08/19/24 08/19/24 History simethicone 80 mg chewable tablet 80 mg PO BEDTIME PRN Gas Relief 08/19/24 08/19/24 Unknown History Exam Height,Weight and Vital Signs: Height 5 ft 8 in Weight 173 lb 11.588 oz Last Vital Signs Temp 98.2 F 08/19/24 16:42 Pulse 80 08/19/24 16:42 Resp 16 08/19/24 16:42 BP 135/85 08/19/24 16:42 Pulse Ox 97 08/19/24 16:42 O2 Del Method Room Air 08/19/24 16:42 Pertinent Lab Results Pertinent Lab Results: Laboratory Tests 08/19/24 08/19/24 12:53 15:21 WBC 9.3 RBC 5.66 Hgb 16.0 Hct 47.5 MCV 83.9 MCH 28.3 MCHC 33.7 RDW 12.1 Plt Count 255 MPV 9.1 L Immature Gran % (Auto) 0.4 Neut % (Auto) 73.4 H Lymph % (Auto) 16.5 L [place] % (Auto) 9.0 Eos % (Auto) 0.5 Baso % (Auto) 0.2 Lymph # (Auto) 1.5 [place] # (Auto) 0.8 Eos # (Auto) 0.1 Baso # (Auto) 0.0 Abs Immat Gran (auto) 0.04 H Absolute Neuts (auto) 6.9 Absolute Nucleated RBC 0.000 Nucleated RBC % (auto) 0.0 Sodium 141 Potassium 4.0 Chloride 103 Carbon Dioxide 24 Anion Gap 18 BUN 10 Creatinine 1.02 Estim Creat Clear Calc 87.5 Estimated GFR > 60 Random Glucose 150 H Lactic Acid 2.2 H* Lactic Acid F/U @ 2Hr 0.8 Calcium 9.3 Magnesium 2.0 Total Bilirubin 0.4 AST 18 ALT 22 Alkaline Phosphatase 87 Total Protein 8.1 H Albumin 4.4 Lipase 28 Airway Mallampati Class: II TM Dist: >3cm Neck ROM: Full Loose/Missing/Broken Teeth: No Assessment and Plan Assessment Anesthesia Assessment: Anesthesia Plan Discussed and Chart Reviewed Final Anesthetic Review Family History of Problems with Anesthesia: No History of Problems with Anesthesia: No NPO: Yes (carri delong at 09:30 this morning) ASA Class: II Final Preanesthetic Review: No Changes in Pt Med Stat, Meds/Allgs Chart Reviewed, Consent Obtained/Reviewed and Anes Risks/Benef Reviewed Patient Risk: Low Procedure Risk: Low Anesthetic Plan Anesthetic Plan: GA Disposition: Standard PACU
--- NOTE | 2024-08-19 18:24 | HO.ANESPROP2 ---
[facility] Active Problems Active Problems: All Active Problems Acute cholecystitis (Acute) Past Medical History Medical History Hypercholesteremia Epilepsy Family History Family history of problems with anesthesia: No Surgical History Surgical History (Updated 08/19/24 @ 17:27 by Gini David RN) H/O eye surgery H/O wisdom tooth extraction History of Problems with Anesthesia: No Social History Social History Are you a primary acute care physical therapist to a significant other at home: No Do you presently have visiting nurse or other home services: No Alcohol intake: current Alcohol intake frequency: holidays/special occasions only Patient Tobacco Use Status: Never used Tobacco Smoked in Last 30 Days: No Use of substances other than those prescribed or required for medical reasons: No Have you been hit, kicked, punched, or otherwise hurt by someone within the past year? If so, by whom?: No Advance Directives: No Advance Directives Information Provided: No Advance Directives on File: No Recently lost weight without trying: No How much weight loss: Not applicable Eating poorly because of decreased appetite: No Nutrition screen score: 0 Nutrition Risks: No Nutritional Risk Poor oral hygiene: Yes (missing teeth throughout) Meds Allergies Allergy/AdvReac Type Severity Reaction Status Date / Time codeine Allergy Severe Anaphylaxis Verified 08/19/24 16:35 Active Medications: Current Medications Acetaminophen (Acetaminophen 325 Mg Tablet) 650 mg PO Q6H PRN PRN Reason: Pain, Mild 1-3,fever,headache Calcium Carbonate (Calcium Carbonate 750 Mg Tab.Chew) 750 mg PO Q4H PRN PRN Reason: Heartburn Hydromorphone HCl (Hydromorphone Hcl 0.5 Mg/0.5 Ml Syringe) 0.25 mg IVPUSH Q5M PRN PRN Reason: Pain, Moderate to Severe (Pain Scale 4-10) Stop: 08/19/24 23:01 Acetaminophen (Ofirmev) 1,000 mg in 100 mls @ 400 mls/hr IV ONCE PRN PRN Reason: Pain, Mild (Pain Scale 1-3) Stop: 08/19/24 23:01 Magnesium Hydroxide (Milk Of Magnesia 30 Ml Oral.Susp) 30 ml PO DAILY PRN PRN Reason: Constipation Melatonin (Melatonin 3 Mg Tablet) 6 mg PO BEDTIME PRN PRN Reason: Insomnia Naloxone HCl (Naloxone Hcl 0.4 Mg/Ml Vial) 0.04 mg IVPUSH Q5M PRN PRN Reason: Excessive sedation or RR < 8 Ondansetron HCl (Ondansetron Hcl 4 Mg/2 Ml Vial) 4 mg IVPUSH ONCE PRN PRN Reason: Nausea and Vomiting Stop: 08/19/24 23:01 Oxycodone HCl (Oxycodone Hcl Immed Release 5 Mg Tablet) 5 mg PO ONCE PRN PRN Reason: Pain, Moderate(Pain Scale 4-6) if no IV Access Stop: 08/19/24 23:01 Sodium Chloride (0.9 % Sodium Chloride Flush 3 Ml Syringe) 3 ml IVFLUSH QSHIFT [facility] Medications ?Medication ?Instructions ?Recorded ?Confirmed ?Last Taken ?Type acetaminophen 500 mg tablet 500 mg PO DAILY PRN Pain 08/19/24 08/19/24 Unknown History dicyclomine 10 mg capsule 10 mg PO TID PRN IBS 08/19/24 08/19/24 08/19/24 History simethicone 80 mg chewable tablet 80 mg PO BEDTIME PRN Gas Relief 08/19/24 08/19/24 Unknown History Exam Height,Weight and Vital Signs: Height 5 ft 8 in Weight 78.8 kg Last Vital Signs Temp 98.2 F 08/19/24 16:42 Pulse 80 08/19/24 16:42 Resp 16 08/19/24 16:42 BP 135/85 08/19/24 16:42 Pulse Ox 97 08/19/24 16:42 O2 Del Method Room Air 08/19/24 16:42 Pertinent Lab Results Pertinent Lab Results: Laboratory Tests 08/19/24 08/19/24 12:53 15:21 WBC 9.3 RBC 5.66 Hgb 16.0 Hct 47.5 MCV 83.9 MCH 28.3 MCHC 33.7 RDW 12.1 Plt Count 255 MPV 9.1 L Immature Gran % (Auto) 0.4 Neut % (Auto) 73.4 H Lymph % (Auto) 16.[address] [place] % (Auto) 9.0 Eos % (Auto) 0.5 Baso % (Auto) 0.2 Lymph # (Auto) 1.5 [place] # (Auto) 0.8 Eos # (Auto) 0.1 Baso # (Auto) 0.0 Abs Immat Gran (auto) 0.04 H Absolute Neuts (auto) 6.9 Absolute Nucleated RBC 0.000 Nucleated RBC % (auto) 0.0 Sodium 141 Potassium 4.0 Chloride 103 Carbon Dioxide 24 Anion Gap 18 BUN 10 Creatinine 1.02 Estim Creat Clear Calc 87.5 Estimated GFR > 60 Random Glucose 150 H Lactic Acid 2.2 H* Lactic Acid F/U @ 2Hr 0.8 Calcium 9.3 Magnesium 2.0 Total Bilirubin 0.4 AST 18 ALT 22 Alkaline Phosphatase 87 Total Protein 8.1 H Albumin 4.4 Lipase 28 Airway Mallampati Class: II TM Dist: >3cm Neck ROM: Full Assessment and Plan Assessment Anesthesia Assessment: Anesthesia Plan Discussed and Chart Reviewed Final Anesthetic Review Family History of Problems with Anesthesia: No History of Problems with Anesthesia: No NPO: Yes ASA Class: I and Emergency Final Preanesthetic Review: No Changes in Pt Med Stat, Meds/Allgs Chart Reviewed, Consent Obtained/Reviewed and Anes Risks/Benef Reviewed Patient Risk: Low Procedure Risk: Intermediate Anesthetic Plan Anesthetic Plan: GA Disposition: Standard PACU
--- OUTSIDE RECORDS SUMMARY | 2024-08-19 18:49 | XMS_ITS | Clinical Summary ---
Author Organization [facility] Address [address] [place] [address] Care Team Providers Care Filling Machine Operator Name Role Phone Iker Porras MD Primary [...] Resolved Date Environmental allergies 02/07/2018 0807/2017 Seizures ([facility]) 02/07/2018 8 Immunizations Name Administration Dates [...] Plan of Treatment Not on file Insurance [facility] SAFETY NET DENTAL IN MEDICAID DENTAL IN MEDICAID Care Teams Filling Machine Operator Relationship Specialty Start Date End Date Ikre Porras MD [address] [place] [id number] PCP - General Family Medicine, Physician 11/28/19
[2024-08-19] MEDS: Piperacillin Sodium/Tazobactam 3.375 GM in 0.9 % Sodium Chloride 50 ML IV (22:52)
--- NOTE | 2024-08-19 23:02 | W.PM.OPN ---
Operative Note Operative Note Date of Service: 08/19/24 Narrative: Preop diagnosis--acute cholecystitis Postop diagnosis--acute cholecystitis Procedure done--laparoscopic converted to open cholecystectomy with cholangiogram Surgeon--Zoe Anesthesia--general endotracheal tube anesthesia History-- The patient is a 44-year-old male who was complaining of abdominal pain in July and came into the emergency room August 01 with abdominal pain and tenderness in the right upper quadrant. That time CT scan showed inflammatory changes around the gallbladder consistent with acute cholecystitis but his labs were unremarkable and he felt better and so he was discharged home with plans to follow-up with surgery as an outpatient. However before that could happen yesterday started having more abdominal pain nausea and was extremely tender in the right upper quadrant. Despite his white count being normal LFTs all normal ultrasound showed Baldwin's sign and thickened gallbladder. As result plan was carried out laparoscopic cholecystectomy Findings-- Significantly inflamed gallbladder with the omental fatty tissue and duodenum stomach stuck to the gallbladder. Multiple stones present and large stone impacted at the neck. Gallbladder cystic duct junction had several stones stuck here which with retraction started the cause the cystic duct to tear. Procedure-- Patient was brought to the operative room and under anesthesia guidance was intubated. He had compression stockings placed before induction and received antibiotics in the emergency room. His abdomen was prepped and draped in standard surgical fashion. An infraumbilical incision was created after numbing up the area Marcaine with epinephrine. Dissection was carried down to the anterior abdominal wall fascia which was grasped with Kochers and transected. 0 Vicryl pursestring suture placed and the Blancas trocar introduced. Pneumoperitoneum was established at 15 mm Hg pressure. Two 5 mm ports were then placed in the right upper quadrant with local and 1 in the epigastric as well under direct visualization. Patient was positioned head up and left side down and a little bit of the gallbladder was identified under the liver edge. There was a lot of omental and fatty tissue stuck to it and it was very tense. Blunt dissection was used to take down a little bit of the fatty tissue and now there was an aspect of the gallbladder where the needle decompression device was introduced and bile material was removed and the gallbladder became softer and more mobile. Now it was grasped and retracted superiorly and with blunt dissection we were attempting to take down the tissue which was noted to be a little bit of the omentum some fatty tissue with the colon mesentery and some of the stomach and duodenal tissue more medially. In the process of trying to grab and retracted there were some tears and some spillage of bile and a few little stones. Slowly working our way towards the triangle of Calot the tissue here was still very thickened and indurated and did not dissect easily. In fact that was really quite fibrosed and the wall of the gallbladder was extremely thick. It was difficult to dissect through this area and we got to a point where what appeared to be the cystic duct looked very large. With retracting the gallbladder superiorly and laterally and now dissecting here this cystic duct gallbladder junction area started to tear and a stone came poking out a little bit. At this point in the operation the gallbladder was oozing a lot there was a lot of omental oozing as well and because the triangle of Calot area was very difficult to evaluate due to the fibrotic state of the tissue here it was decided to open. An incision was made in the Right upper quadrant connecting two of the port sites from the epigastric to right upper quadrant was carried out and using the cautery the peritoneal cavity was entered. The gallbladder fossa area was packed with lap pads and the Bookwalter retractor was set up. The colon was packed down with lap pads and secured and the body wall was used under the rib area. The gallbladder was very intrahepatic as well and very thickened. With the cautery we dissected out a plain between the gallbladder and the liver as best as possible but at times with the liver was stuck and we got into some bleeding. Even within the gallbladder staying close to the wall it was very vascularised and bled easily. Surgicel was used throughout the procedure again some of this raw surface area and lap pads used to pack the area for hemostasis. The gallbladder was secured with using Sola clamps to retract the gallbladder and we came laterally all around coming towards the area which the cystic duct and cystic artery would be located. coming down the back of the gallbladder and more medially slowly and carefully dissecting with the right angle and tonsil clamp and cauterizing the tissue. We eventually came across what was a very thickened clump of tissue which housed the small cystic artery and cystic duct. This was dissected out and we could see the tear in the ducts/gallbladder junction nearby. Eventually the gallbladder was clamped and the tear that was already present was cut with a scalpel to get clean edges. It was noted that the wall of the tissue was very thickened still here. There was not much bile backflow and a small red rubber catheter was placed down the cystic duct And irrigated and now we got better bile coming out. There were no further stones noted. The rest of the tissue with manual palpation felt soft. The gallbladder fossa had been packed with some Surgicel and lap pads but there was an area noted with some moderate bile drainage at the base of the gallbladder fossa. This area was packed and a cholangiogram was carried out. The cholangiogram showed long cystic duct and an intact common bile duct and left and right hepatic radicles. There was some filling defects 1st noted which I think were just air bubbles and the area was irrigated and then several other cholangiogram shots carried out. There may have been a little spillage as the red rubber catheter was clamped and tied with a Polysorb suture. After being satisfied that there was a long cystic duct the common bile duct looked intact that was contrast flowing into the duodenum easily and hepatic radicles looked fine there was also some spillage of some contrast which may have been around the red rubber catheter. After the cholangiogram was carried out the red rubber catheter was removed the cystic duct stump area was clamped and suture ligated with 3-0 silk suture. Another simple tie with 3-0 silk was carried out as well closing off this area. The area was irrigated and suctioned hemostasis at the liver fossa was good. At the base however there was still some ongoing bile leak and a little duct tissue was identified and clipped with a clip gerontology aide. One figure of 8 3-0 silk suture was used on the liver where there was a leakage of the bile and this seemed to slow it down considerably. A large CHRISTOPHER drain was placed in the gallbladder fossa near the cystic duct. And the area on the liver that was leaking bile. At this point it looked much improved. The lap pads were removed Bookwalter dismantled and with hemostasis good cystic duct stump good cystic artery clipped attention was now focused to close abdominal wall. 0 Polysorb was used to close the peritoneum and some of the posterior sheath and then 0 Maxon was used to close the posterior and then the anterior sheath. the area was irrigated and more local was used. The purse-string suture at the umbilical port site was secured. Some 3 0 Polysorb was used in the subcutaneous tissue to approximate the edges of the skin and then marc were used to close off the skin incision and the umbilical skin as well. At the end of the case all sponge instrument needle counts were correct estimated blood loss was about 425 cc ,specimen sent was the gallbladder patient was extubated and returned stable to recovery room
[2024-08-19] MEDS: fentaNYL citrate/PF 100 MCG/2 ML VIAL 50 MCG IVPUSH ×3 (23:06→23:30)
[2024-08-19] MEDS: oxyCODONE HCl Immed Release 5 MG TABLET PO (23:54)
[2024-08-20 00:19] VITALS: BMI 26.1
[2024-08-20] MEDS: 0.9 % Sodium Chloride 1,000 ML 100 ML IVCONT ×3 (01:07→20:39)
[2024-08-20] MEDS: 0.9 % Sodium Chloride Flush 3 ML SYRINGE IVFLUSH ×2 (01:07→20:39)
[2024-08-20] MEDS: oxyCODONE HCl Immed Release 5 MG TABLET 10 MG PO ×3 (03:54→11:31)
[2024-08-20 03:59] VITALS: BP 136/81; PULSE 93; RESP 18; TEMP 36.4; O2SAT 97
[2024-08-20] MEDS: Piperacillin Sodium/Tazobactam 3.375 GM in 0.9 % Sodium Chloride 50 ML IV ×4 (04:00→23:21)
[2024-08-20 06:05] LABS: MANUAL DIFF FLAG NO
[2024-08-20 06:23] LABS: Basophils Percent Auto 0.1 % (0-2); Hematocrit 38.7 % (42.0-52.0); Hemoglobin 12.9 g/dl (14.0-18.0); Imm Gran Abs Auto 0.07 X10*3/uL (0.00-0.03); Imm Gran Pct Auto 0.6 % (0.0-0.4); Lymphocytes Absolute Auto 0.7 X10*3/uL (1.2-4.9); Lymphocytes Percent Auto 6.5 % (20-40); Mean Corpuscular HGB Conc 33.3 g/dl (31.0-36.0); Mean Corpuscular Hemoglobin 28.3 pg (27.0-33.0); Mean Corpuscular Volume 84.9 fL (80.0-98.0); Mean Platelet Volume 9.2 fL (9.4-12.4); Monocytes Absolute Auto 0.7 X10*3/uL (0.1-1.2); Monocytes Percent Auto 6.3 % (2-11); Neutrophils Absolute Auto 9.5 x10*3/uL (2.0-8.3); Neutrophils Percent Auto 86.5 % (45-73); Platelet Count 245 X10*3/uL (160-400); Red Blood Count 4.56 X10*6/uL (4.60-5.80); Red Cell Distribution Width 12.2 % (11.0-16.0)
[2024-08-20 06:34] LABS: Alanine Aminotransferase 51 U/L (0-40); Albumin Level 3.4 g/dL (3.5-5.0); Alkaline Phosphatase 65 U/L (39-117); Anion Gap 13 (12-20); Aspartate Amino Transferase 62 U/L (5-37); Bilirubin Total 0.6 mg/dL (0.0-1.0); Blood Urea Nitrogen 11 mg/dL (9-16); Calcium 8.5 mg/dL (8.4-10.2); Carbon Dioxide 23 mmol/L (22-29); Chloride 106 mmol/L (96-108); Estimated Glomerular Filt Rate > 60; Glucose Random 125 mg/dL (60-115); Potassium 4.4 mmol/L (3.3-5.1); Sodium 138 mmol/L (135-145); Total Protein 6.6 g/dL (6.5-8.0)
--- NOTE | 2024-08-20 07:53 | PM.PNGS ---
Subjective Subjective Date of Service: 08/20/24 Interval history: POD #1 s/p lap converted to open cholecystectomy with cholangiogram. Patient mainly complains of incision pain at the right upper quadrant. Pain improves with current pain meds. Not very hungry but denies nausea. C/o tingling in the left thumb thru third finger. Physical Exam Vital Signs: Vital Signs: Last Vital Signs Temp 97.5 F 08/20/24 03:59 Pulse 93 08/20/24 03:59 Resp 18 08/20/24 03:59 BP 136/81 08/20/24 03:59 Pulse Ox 97 08/20/24 03:59 O2 Del Method Nasal Cannula 08/20/24 03:59 O2 Flow Rate 3 08/20/24 03:59 BMI result Body Mass Index 26.1 Const: General: no acute distress Nutritional Appearance: well nourished Orientation/consciousness: patient oriented x3 Eyes: Sclerae: sclerae normal Resp: Effort & Inspection: normal respiratory effort, no audible wheezes, no cough and no respiratory distress GI: Other: dressing right upper quadrant clean and intact; CHRISTOPHER with sanguinous output, nondistended. Skin: Other: warm and dry Neuro: General: patient oriented x3 Extrem: Other: nl ROM left hand/fingers, normal pulse Objective Data Active Medications Acetaminophen (Acetaminophen 325 Mg Tablet) 650 mg PO Q6H PRN PRN Reason: Pain, Mild 1-3,fever,headache Famotidine (Famotidine 20 Mg Tablet) 20 mg PO BID [facility] Piperacillin Sod/Tazobactam (Sod 3.375 gm/ Sodium Chloride) 50 mls @ 100 mls/hr IV Q6H [facility] Stop: 08/21/24 00:00 Last Infusion: 08/20/24 04:31 Dose: Infused Documented By: CRISTO Sodium Chloride (Ns) 1,000 mls @ 100 mls/hr IVCONT .Q10H [facility] Last Admin: 08/20/24 01:07 Dose: 100 mls/hr Documented By: CRISTO Magnesium Hydroxide (Milk Of Magnesia 30 Ml Oral.Susp) 30 ml PO DAILY PRN PRN Reason: Constipation Melatonin (Melatonin 3 Mg Tablet) 6 mg PO BEDTIME PRN PRN Reason: Insomnia Morphine Sulfate (Morphine Sulfate 4 Mg/Ml Cartridge) 4 mg IVPUSH Q4H PRN; Protocol PRN Reason: Pain, Severe (Pain Scale 7-10) Naloxone HCl (Naloxone Hcl 0.4 Mg/Ml Vial) 0.04 mg IVPUSH Q5M PRN PRN Reason: Excessive sedation or RR < 8 Ondansetron HCl (Ondansetron Hcl 4 Mg/2 Ml Vial) 4 mg IVPUSH Q8H PRN PRN Reason: Nausea and Vomiting Oxycodone HCl (Oxycodone Hcl Immed Release 5 Mg Tablet) 5 mg PO Q4H PRN PRN Reason: Pain, Moderate(Pain Scale 4-6) Last Admin: 08/19/24 23:54 Dose: 5 mg Documented By: ELYSE Oxycodone HCl (Oxycodone Hcl Immed Release 5 Mg Tablet) 10 mg PO Q4H PRN PRN Reason: Pain, Severe (Pain Scale 7-10) Last Admin: 08/20/24 03:54 Dose: 10 mg Documented By: CRISTO Sodium Chloride (0.9 % Sodium Chloride Flush 3 Ml Syringe) 3 [facility] [place] Last Admin: 08/20/24 07:14 Dose: Not Given Documented By: MOHIT Non-Admin Reason: IV Running Labs 08/20/24 05:45 08/20/24 05:45 Labs: Laboratory Results - last 24 hr 08/19/24 08/19/24 08/20/24 12:53 15:21 05:45 MCV 83.9 84.9 MCH 28.3 28.3 MCHC 33.7 33.3 RDW 12.1 12.2 Plt Count 255 245 MPV 9.1 L 9.2 L Immature Gran % (Auto) 0.4 0.6 H Neut % (Auto) 73.4 H 86.5 H Lymph % (Auto) 16.5 L 6.5 L [place] % (Auto) 9.0 6.3 Eos % (Auto) 0.5 0.0 Baso % (Auto) 0.2 0.1 Lymph # (Auto) 1.5 0.7 L [place] # (Auto) 0.8 0.7 Eos # (Auto) 0.1 0.0 Baso # (Auto) 0.0 0.0 Abs Immat Gran (auto) 0.04 H 0.07 H Absolute Neuts (auto) 6.9 9.5 H Absolute Nucleated RBC 0.000 0.000 Nucleated RBC % (auto) 0.0 0.0 Anion Gap 18 13 Estim Creat Clear Calc 87.5 95.0 Estimated GFR > 60 > 60 Random Glucose 150 H 125 H Lactic Acid 2.2 H* Lactic Acid F/U @ 2Hr 0.8 Calcium 9.3 8.5 D Magnesium 2.0 Total Bilirubin 0.4 0.6 AST 18 62 H ALT 22 51 H Alkaline Phosphatase 87 65 Total Protein 8.1 H 6.6 Albumin 4.4 3.4 L Lipase 28 Procedures Date of Service Date of Service: 08/20/24 Progress Note: A&P Assessment and plan (1) Acute cholecystitis: Status: Acute Plan POD #1 s/p open cholecystectomy, cholangiogram. Wounds clean, dressings dry. Labs mild elevated transaminases, nl bili. Continue with clear liquids, IV antibiotics. Encouraged OOB and ambulation, IS. Time Spent With Patient Time: Total time managing care of this patient today ____ minutes. Quality Stroke Does the patient have a stroke diagnosis?: No VTE Prior VTE?: No VTE Risk Level:: Surgical - low VTE Device Contraindication: N/A - Device Ordered VTE Drug Contraindication: Treatment Not Indicated
--- NOTE | 2024-08-20 07:54 | PM.PNGS ---
Subjective Subjective Date of Service: 08/20/24 <Denise Gutiérrez PA-C - Last Filed: 08/20/24 08:00> 08/20/24 <Celso Ross MD - Last Filed: 08/20/24 08:01> Interval history: Sore this morning, pain meds helping with incisional pain. Tired. Denies flatus, feels bloated. <Denise Gutiérrez PA-C - Last Filed: 08/20/24 08:00> Physical Exam Vital Signs: Vital Signs: Last Vital Signs Temp 97.5 F 08/20/24 03:59 Pulse 93 08/20/24 03:59 Resp 18 08/20/24 03:59 BP 136/81 08/20/24 03:59 Pulse Ox 97 08/20/24 03:59 O2 Del Method Nasal Cannula 08/20/24 03:59 O2 Flow Rate 3 08/20/24 03:59 BMI result Body Mass Index 26.1 <Denise Gutiérrez PA-C - Last Filed: 08/20/24 08:00> Const: General: comfortable, no acute distress and alert <Denise Gutiérrez PA-C - Last Filed: 08/20/24 08:00> Orientation/consciousness: patient oriented x3 <CRISTHIAN Pittman Last Filed: 08/20/24 08:00> Resp: Effort & Inspection: normal respiratory effort <Denise Gutiérrez PA-C - Last Filed: 08/20/24 08:00> GI: Other: CHRISTOPHER drain scant sanguineous <Denise Gutiérrez PA-C - Last Filed: 08/20/24 08:00> Inspection: Yes distended (mild, softly) <CRISTHIAN Pittman Last Filed: 08/20/24 08:00> Palpation (GI): Soft to palpation, Tenderness to palpation present (GI) (mild incisional) and no guarding <CRISTHIAN Pittman Last Filed: 08/20/24 08:00> Skin: General skin exam: no rashes or lesions noted and no jaundice <CRISTHIAN Pittman Last Filed: 08/20/24 08:00> Neuro: General: patient oriented x3 and moves all extremities <Denise Gutiérrez PA-C - Last Filed: 08/20/24 08:00> Extrem: General: Yes no clubbing, cyanosis or edema <Denise Gutiérrez PA-C - Last Filed: 08/20/24 08:00> Objective Data Active Medications Acetaminophen (Acetaminophen 325 Mg Tablet) 650 mg PO Q6H PRN PRN Reason: Pain, Mild 1-3,fever,headache Famotidine (Famotidine 20 Mg Tablet) 20 mg PO BID [facility] Piperacillin Sod/Tazobactam (Sod 3.375 gm/ Sodium Chloride) 50 mls @ 100 mls/hr IV Q6H [facility] Stop: 08/21/24 00:00 Last Infusion: 08/20/24 04:31 Dose: Infused Documented By: CRISTO Sodium Chloride (Ns) 1,000 mls @ 100 mls/hr IVCONT .Q10H [facility] Last Admin: 08/20/24 01:07 Dose: 100 mls/hr Documented By: CRISTO Magnesium Hydroxide (Milk Of Magnesia 30 Ml Oral.Susp) 30 ml PO DAILY PRN PRN Reason: Constipation Melatonin (Melatonin 3 Mg Tablet) 6 mg PO BEDTIME PRN PRN Reason: Insomnia Morphine Sulfate (Morphine Sulfate 4 Mg/Ml Cartridge) 4 mg IVPUSH Q4H PRN; Protocol PRN Reason: Pain, Severe (Pain Scale 7-10) Naloxone HCl (Naloxone Hcl 0.4 Mg/Ml Vial) 0.04 mg IVPUSH Q5M PRN PRN Reason: Excessive sedation or RR < 8 Ondansetron HCl (Ondansetron Hcl 4 Mg/2 Ml Vial) 4 mg IVPUSH Q8H PRN PRN Reason: Nausea and Vomiting Oxycodone HCl (Oxycodone Hcl Immed Release 5 Mg Tablet) 5 mg PO Q4H PRN PRN Reason: Pain, Moderate(Pain Scale 4-6) Last Admin: 08/19/24 23:54 Dose: 5 mg Documented By: ELYSE Oxycodone HCl (Oxycodone Hcl Immed Release 5 Mg Tablet) 10 mg PO Q4H PRN PRN Reason: Pain, Severe (Pain Scale 7-10) Last Admin: 08/20/24 03:54 Dose: 10 mg Documented By: CRISTO Sodium Chloride (0.9 % Sodium Chloride Flush 3 Ml Syringe) [facility] Last Admin: 08/20/24 07:14 Dose: Not Given Documented By: MOHIT Non-Admin Reason: IV Running <Denise Gutiérrez PA-C - Last Filed: 08/20/24 08:00> Labs CBC & Chem 7: 08/20/24 05:45 08/20/24 05:45 <Denise Gutiérrez PA-C - Last Filed: 08/20/24 08:00> Labs: Laboratory Results - last 24 hr 08/19/24 08/19/24 08/20/24 12:53 15:21 05:45 MCV 83.9 84.9 MCH 28.3 28.3 MCHC 33.7 33.3 RDW 12.1 12.2 Plt Count 255 245 MPV 9.1 L 9.2 L Immature Gran % (Auto) 0.4 0.6 H Neut % (Auto) 73.4 H 86.5 H Lymph % (Auto) 16.5 L 6.5 L [place] % (Auto) 9.0 6.3 Eos % (Auto) 0.5 0.0 Baso % (Auto) 0.2 0.1 Lymph # (Auto) 1.5 0.7 L [place] # (Auto) 0.8 0.7 Eos # (Auto) 0.1 0.0 Baso # (Auto) 0.0 0.0 Abs Immat Gran (auto) 0.04 H 0.07 H Absolute Neuts (auto) 6.9 9.5 H Absolute Nucleated RBC 0.000 0.000 Nucleated RBC % (auto) 0.0 0.0 Anion Gap 18 13 Estim Creat Clear Calc 87.5 95.0 Estimated GFR > 60 > 60 Random Glucose 150 H 125 H Lactic Acid 2.2 H* Lactic Acid F/U @ 2Hr 0.8 Calcium 9.3 8.5 D Magnesium 2.0 Total Bilirubin 0.4 0.6 AST 18 62 H ALT 22 51 H Alkaline Phosphatase 87 65 Total Protein 8.1 H 6.6 Albumin 4.4 3.4 L Lipase 28 <Denise Gutiérrez PA-C - Last Filed: 08/20/24 08:00> Procedures Date of Service Date of Service: 08/20/24 <Denise Gutiérrez PA-C - Last Filed: 08/20/24 08:00> 08/20/24 <Celso Ross MD - Last Filed: 08/20/24 08:01> Progress Note: A&P Assessment and plan (1) Acute cholecystitis: Status: Acute <Denise Gutiérrez PA-C - Last Filed: 08/20/24 08:00> (2) S/P cholecystectomy: Status: Acute <Denise Gutiérrez PA-C - Last Filed: 08/20/24 08:00> Assessment and Plan: POD #1 s/p lap attempted converted to open cholecystectomy for acute cholecystitis. Found to have significantly inflamed gallbladder with the omental fatty tissue and duodenum stomach stuck to the gallbladder, multiple stones present and large stone impacted at the neck. Doing fairly well post op, comfortable with analgesics. VSS. Abd exam overall benign with intact dressings and appropriate post op tenderness. CHRISTOPHER drain nonbilious output. AM labs reviewed- bili remains normal. Continue pain control. Will advance to clear liquids, cont IVF, IV zosyn for now. Keep drain in place. Encouraged OOB/ambulation and IS use. Wean O2. <Denise Gutiérrez PA-C - Last Filed: 08/20/24 08:00> Time Spent With Patient Time: Total time managing care of this patient today ____ minutes. <Denise Gutiérrez PA-C - Last Filed: 08/20/24 08:00> Quality Stroke Does the patient have a stroke diagnosis?: No <Denise Gutiérrez PA-C - Last Filed: 08/20/24 08:00> VTE Prior VTE?: No <Denise Gutiérrez PA-C - Last Filed: 08/20/24 08:00> VTE Risk Level:: Surgical - low <CRISTHIAN Pittman Last Filed: 08/20/24 08:00> VTE Device Contraindication: N/A - Device Ordered <Denise Gutiérrez PA-C - Last Filed: 08/20/24 08:00> VTE Drug Contraindication: Treatment Not Indicated <Denise Gutiérrez PA-C - Last Filed: 08/20/24 08:00>
[2024-08-20 07:55] VITALS: BP 132/90; PULSE 88; RESP 17; TEMP 36.7; O2SAT 97
[2024-08-20] MEDS: Famotidine 20 MG TABLET PO ×2 (08:04→20:38)
--- NOTE | 2024-08-20 08:12 | HO.POSTANES ---
Post Anesthesia Evaluation Post Anesthesia Evaluation Date of Service: 08/20/24 Vital Signs: Vital Signs Temp Pulse Resp BP Pulse Ox O2 Del Method O2 Flow Rate 08/20/24 07:55 98.1 F 88 17 132/90 H 97 Nasal Cannula 3 08/20/24 03:59 97.5 F 93 18 136/81 97 Nasal Cannula 3 08/19/24 23:55 99 14 128/76 97 Nasal Cannula 3 08/19/24 23:36 97.2 F 99 12 125/73 97 Nasal Cannula 3 08/19/24 23:30 106 H 14 127/74 97 Nasal Cannula 3 08/19/24 23:30 16 08/19/24 23:21 101 H 12 121/75 97 Nasal Cannula 3 08/19/24 23:14 128/76 98 Nasal Cannula 3 08/19/24 23:14 16 08/19/24 23:08 18 08/19/24 23:06 105 H 28 H 131/79 96 Nasal Cannula 3 08/19/24 22:51 103 H 18 123/67 97 Nasal Cannula 3 08/19/24 22:46 106 H 15 122/70 97 Nasal Cannula 3 08/19/24 22:41 109 H 15 114/69 98 Nasal Cannula 3 08/19/24 22:36 98.2 F 106 H 15 121/68 97 Nasal Cannula 3 Anesthesia: General Endotracheal-GETA Mental Status: Awake Pain Control: Satisfactory Nausea/Vomiting: None Hydration: Adequate Anesthesia-Related Issues: No Anes. Related Issues
--- NOTE | 2024-08-20 09:12 | MHC.CM.PN ---
S/P Open [place] Patient lives by himself. He is independent with all functional mobility. PCP Dr JAEGER. He declined the offer to document a HCP. DP Home self care. Patient will self transport home.
[2024-08-20] MEDS: Morphine Sulfate 4 MG/ML CARTRIDGE IVPUSH ×2 (09:19→15:22)
[2024-08-20 12:00] VITALS: BP 127/81; PULSE 94; RESP 18; TEMP 36.8; O2SAT 97
[2024-08-20] MEDS: Acetaminophen 1,000 MG/100 ML PIGGYBACK 400 MG IV ×3 (12:39→23:52)
[2024-08-20 15:13] VITALS: BP 159/95; PULSE 97; RESP 18; TEMP 36.6; O2SAT 96
--- NOTE | 2024-08-20 19:05 | PC.NURSE ---
Called into room for pt having excruciting pain to right side. Grabbing right side, diaphoretic, grimacing and unable to verbalize pain. Morphine given per order. Ice packs given for comfort. CHRISTOPHER drain with 100cc bile/bloody ouput. Dr. Ross notified. Responded that he would consult GI. No further orders. Pt reports pain 07/25 at present. Able to ambulate in room briefly. No further complaints.
[2024-08-20 19:30] VITALS: BP 111/69; PULSE 80; RESP 18; TEMP 36.8; O2SAT 94
[2024-08-20] MEDS: oxyCODONE HCl Immed Release 5 MG TABLET PO (22:26)
[2024-08-20 23:20] VITALS: BP 121/75; PULSE 84; RESP 18; TEMP 37.2; O2SAT 92
[2024-08-21] VITALS (16 sets, daily range): BP systolic 120–142; BP diastolic 75–90; PULSE 78–111; RESP 14–18; TEMP 36.4–37.3; O2SAT 89–99
[2024-08-21] MEDS: Morphine Sulfate 4 MG/ML CARTRIDGE IVPUSH (04:50)
[2024-08-21] MEDS: ondansetron HCL 4 MG/2 ML VIAL IVPUSH (05:04)
[2024-08-21] MEDS: Acetaminophen 1,000 MG/100 ML PIGGYBACK 400 MG IV ×3 (06:05→20:00)
[2024-08-21] MEDS: 0.9 % Sodium Chloride 1,000 ML 100 ML IVCONT ×3 (06:05→23:45)
[2024-08-21 06:33] LABS: MANUAL DIFF FLAG NO
[2024-08-21 06:45] LABS: Basophils Percent Auto 0.1 % (0-2); Eosinophils Absolute Auto 0.1 X10*3/uL (0.0-0.4); Eosinophils Percent Auto 0.5 % (0-4); Hematocrit 37.1 % (42.0-52.0); Hemoglobin 12.1 g/dl (14.0-18.0); Imm Gran Abs Auto 0.04 X10*3/uL (0.00-0.03); Imm Gran Pct Auto 0.4 % (0.0-0.4); Lymphocytes Absolute Auto 1.8 X10*3/uL (1.2-4.9); Lymphocytes Percent Auto 19.4 % (20-40); Mean Corpuscular HGB Conc 32.6 g/dl (31.0-36.0); Mean Corpuscular Hemoglobin 28.1 pg (27.0-33.0); Mean Corpuscular Volume 86.3 fL (80.0-98.0); Mean Platelet Volume 9.3 fL (9.4-12.4); Monocytes Absolute Auto 0.8 X10*3/uL (0.1-1.2); Monocytes Percent Auto 8.7 % (2-11); Neutrophils Absolute Auto 6.6 x10*3/uL (2.0-8.3); Neutrophils Percent Auto 70.9 % (45-73); Platelet Count 236 X10*3/uL (160-400); Red Cell Distribution Width 12.4 % (11.0-16.0); White Blood Count 9.3 X10*3/uL (4.8-10.8)
[2024-08-21 06:55] LABS: Alanine Aminotransferase 35 U/L (0-40); Albumin Level 3.5 g/dL (3.5-5.0); Alkaline Phosphatase 57 U/L (39-117); Aspartate Amino Transferase 32 U/L (5-37); Bilirubin Direct 0.2 mg/dL (0.0-0.5); Bilirubin Total 0.5 mg/dL (0.0-1.0); Total Protein 6.5 g/dL (6.5-8.0)
[2024-08-21] MEDS: oxyCODONE HCl Immed Release 5 MG TABLET 10 MG PO (07:44)
--- NOTE | 2024-08-21 07:49 | P.PNGS_ITS ---
Subjective Subjective Date of Service: 08/21/24 Interval history: Having difficulty with pain at right side, RUQ, right shoulder. Having some nausea, belching but no flatus or BM. Physical Exam 2 Vital Signs: Vital Signs: Last Vital Signs Temp 97.6 F 08/21/24 07:38 Pulse 105 H 08/21/24 07:38 Resp 18 08/21/24 07:38 BP 133/77 08/21/24 07:38 Pulse Ox 92 08/21/24 07:38 O2 Del Method Room Air 08/21/24 07:38 O2 Flow Rate 3 08/20/24 12:00 BMI result Body Mass Index 26.1 Const: General: comfortable, no acute distress and alert O rientation/consciousness: patient oriented x3 Resp: Effort & Inspection: normal respiratory effort GI: Other: soft but tender at right abdomen, incision with voluntary guarding CHRISTOPHER drain with high bilious output Inspection: Yes distended and Yes incision (dressing intact) Skin: General skin exam: no rashes or lesions noted and no jaundice Neuro: General: patient oriented x3 Objective Data Active Medications Famotidine (Famotidine 20 Mg Tablet) 20 mg PO BID [facility] Last Admin: 08/20/24 20:38 Dose: 20 mg Documented By: GARO Hydromorphone HCl (Hydromorphone Hcl 0.5 Mg/0.5 Ml Syringe) 0.5 mg IVPUSH Q3H PRN; Protocol PRN Reason: Pain, Severe (Pain Scale 7-10) Sodium Chloride (Ns) 1,000 mls @ 100 mls/hr IVCONT .Q10H [facility] Last Admin: 08/21/24 06:05 Dose: 100 mls/hr Documented By: GARO Acetaminophen (Ofirmev) 1,000 mg in 100 mls @ 400 mls/hr IV Q6H [facility] Last Infusion: 08/21/24 06:20 Dose: Infused Documented By: GARO Ketorolac Tromethamine (Ketorolac Tromethamine 15 Mg/Ml Vial) 15 mg IVPUSH Q6H PRN PRN Reason: Pain, Severe (Pain Scale 7-10) Stop: 08/25/24 14:14 Magnesium Hydroxide (Milk Of Magnesia 30 Ml Oral.Susp) 30 ml PO DAILY PRN PRN Reason: Constipation Melatonin (Melatonin 3 Mg Tablet) 6 mg PO BEDTIME PRN PRN Reason: Insomnia Ondansetron HCl (Ondansetron Hcl 4 Mg/2 Ml Vial) 4 mg IVPUSH Q8H PRN PRN Reason: Nausea and Vomiting Last Admin: 08/21/24 05:04 Dose: 4 mg Documented By: GARO Oxycodone HCl (Oxycodone Hcl Immed Release 5 Mg Tablet) 5 mg PO Q4H PRN PRN Reason: Pain, Moderate(Pain Scale 4-6) Last Admin: 08/20/24 22:26 Dose: 5 mg Documented By: GARO Oxycodone HCl (Oxycodone Hcl Immed Release 5 Mg Tablet) 10 mg PO Q4H PRN PRN Reason: Pain, Severe (Pain Scale 7-10) Last Admin: 08/21/24 07:44 Dose: 10 mg Documented By: BRADLEY Sodium Chloride (0.9 % Sodium Chloride Flush 3 Ml Syringe) 3 ml IVFLUSH QSHIFT [facility] Last Admin: 08/20/24 20:39 Dose: 3 ml Documented By: GARO Labs 08/21/24 06:31 08/20/24 05:45 Labs: Laboratory Results - last 24 hr 08/21/24 06:31 MCV 86.3 MCH 28.1 MCHC 32.6 RDW 12.4 Plt Count 236 MPV 9.3 L Immature Gran % (Auto) 0.4 Neut % (Auto) 70.9 Lymph % (Auto) 19.4 L [place] % (Auto) 8.7 Eos % (Auto) 0.5 Baso % (Auto) 0.1 Lymph # (Auto) 1.8 [place] # (Auto) 0.8 Eos # (Auto) 0.1 Baso # (Auto) 0.0 Abs Immat Gran (auto) 0.04 H Absolute Neuts (auto) 6.6 Absolute Nucleated RBC 0.000 Nucleated RBC % (auto) 0.0 Total Bilirubin 0.5 Direct Bilirubin 0.2 AST 32 ALT 35 Alkaline Phosphatase 57 Total Protein 6.5 Albumin 3.5 Microbiology Microbiology Results: Microbiology 08/19/24 12:52 Blood Culture - Preliminary Blood - Venous No growth after 24 hours. 08/19/24 12:54 Blood Culture - Preliminary Blood - Venous No growth after 24 hours. Procedures Date of Service Date of Service: 08/21/24 Progress Note: A&P Assessment and plan (1) S/P cholecystectomy: Status: Acute (2) Acute cholecystitis: Status: Acute Plan POD #2 s/p lap attempted converted to open cholecystectomy for acute cholecystitis. Found to have significantly inflamed gallbladder with the omental fatty tissue and duodenum stomach stuck to the gallbladder, multiple stones present and large stone impacted at the neck. Having difficulty with pain and CHRISTOPHER with high bilious output. Concerning for bile leak and ?biloma. AM labs reviewed- LFTs normal. Will order CT scan IV contrast to assess. GI consult. NPO, IVF. Adjust analgesics. Keep drain in place. Encouraged OOB/ambulation and IS use. Further plan dependent on CT scan results, GI input. Time Spent With Patient Time: Total time managing care of this patient today ____ minutes. Quality Stroke Does the patient have a stroke diagnosis?: No VTE Prior VTE?: No VTE Risk Level:: Surgical - low VTE Device Contraindication: N/A - Device Ordered VTE Drug Contraindication: Treatment Not Indicated
--- NOTE | 2024-08-21 08:22 | P.CNGI_ITS ---
History of Present Illness Data of Consult Service Date: 08/21/24 Requesting physician: Denise Gutiérrez Primary Care Provider: Gene Rivera MD [facility] Reason for consult: s/p cholecystectomy, ?bile leak 44 YM admitted to [facility] on 08/19/24 with worsening RUQ pain, nausea and vomiting. 08/19/24 abd us showed: 1. Findings consistent with acute cholecystitis as described. 2. Mild hepatomegaly. 08/19/24 pt had a laparoscopic converted to open cholecystectomy with cholangiogram Found to have significantly inflamed gallbladder with the omental fatty tissue and duodenum stomach stuck to the gallbladder, multiple stones present and large stone impacted at the neck. Review of Systems 2 Review of Systems: Yes all other systems are reviewed and are negative PMFSH Past Medical History Medical History Hypercholesteremia Epilepsy Surgical History Surgical History History of ERCP (08/21/24) History of cholecystectomy (08/19/24) H/O eye surgery H/O wisdom tooth extraction Social History Social History Household Members: None Housing: House Are you a primary wound care rn to a significant other at home: No Do you presently have visiting nurse or other home services: No Alcohol intake: current Alcohol intake frequency: holidays/special occasions only Patient Tobacco Use Status: Never used Tobacco service: No Meds Allergies Allergy/AdvReac Type Severity Reaction Status Date / Time codeine Allergy Severe Anaphylaxis Verified 08/21/24 09:56 Active Medications: Current Medications Famotidine (Famotidine 20 Mg Tablet) 20 mg PO BID [facility] Last Admin: 08/20/24 20:38 Dose: 20 mg Hydromorphone HCl (Hydromorphone Hcl 0.5 Mg/0.5 Ml Syringe) 0.5 mg IVPUSH Q3H PRN; Protocol PRN Reason: Pain, Severe (Pain Scale 7-10) Sodium Chloride (Ns) 1,000 mls @ 100 mls/hr IVCONT .Q10H [facility] Last Admin: 08/21/24 06:05 Dose: 100 mls/hr Acetaminophen (Ofirmev) 1,000 mg in 100 mls @ 400 mls/hr IV Q6H [facility] Last Infusion: 08/21/24 06:20 Dose: Infused Ketorolac Tromethamine (Ketorolac Tromethamine 15 Mg/Ml Vial) 15 mg IVPUSH Q6H PRN PRN Reason: Pain, Severe (Pain Scale 7-10) Stop: 08/25/24 14:14 Magnesium Hydroxide (Milk Of Magnesia 30 Ml Oral.Susp) 30 ml PO DAILY PRN PRN Reason: Constipation Melatonin (Melatonin 3 Mg Tablet) 6 mg PO BEDTIME PRN PRN Reason: Insomnia Ondansetron HCl (Ondansetron Hcl 4 Mg/2 Ml Vial) 4 mg IVPUSH Q8H PRN PRN Reason: Nausea and Vomiting Last Admin: 08/21/24 05:04 Dose: 4 mg Oxycodone HCl (Oxycodone Hcl Immed Release 5 Mg Tablet) 5 mg PO Q4H PRN PRN Reason: Pain, Moderate(Pain Scale 4-6) Last Admin: 08/20/24 22:26 Dose: 5 mg Oxycodone HCl (Oxycodone Hcl Immed Release 5 Mg Tablet) 10 mg PO Q4H PRN PRN Reason: Pain, Severe (Pain Scale 7-10) Last Admin: 08/21/24 07:44 Dose: 10 mg Sodium Chloride (0.9 % Sodium Chloride Flush 3 Ml Syringe) [facility] Last Admin: 08/20/24 20:39 Dose: 3 ml Home Medications ?Medication ?Instructions ?Recorded ?Confirmed ?Last Taken ?Type acetaminophen 500 mg tablet 500 mg PO DAILY PRN Pain 08/19/24 09/02/24 Unknown History dicyclomine 10 mg capsule 10 mg PO TID PRN IBS 08/19/24 09/02/24 08/19/24 History simethicone 80 mg chewable tablet 80 mg PO BEDTIME PRN Gas Relief 08/19/24 09/02/24 Unknown History Physical Exam 2 Vital Signs: Vital Signs: Last Vital Signs Temp 97.6 F 08/21/24 07:38 Pulse 105 H 08/21/24 07:38 Resp 18 08/21/24 07:38 BP 133/77 08/21/24 07:38 Pulse Ox 92 08/21/24 07:38 O2 Del Method Room Air 08/21/24 07:38 O2 Flow Rate 3 08/20/24 12:00 BMI result Body Mass Index 26.1 Const: General: comfortable, no acute distress and alert O rientation/consciousness: patient oriented x3 Resp: Effort & Inspection: normal respiratory effort GI: Other: soft with RUQ tenderness, incision with voluntary guarding CHRISTOPHER drain with high bilious output (approx 50 cc) Inspection: Yes distended and Yes incision (dressing intact) Skin: General skin exam: no rashes or lesions noted and no jaundice Neuro: General: patient oriented x3 Results Labs 08/21/24 06:31 08/21/24 15:47 Labs: Short CBC 08/21/24 Range/Units 06:31 WBC 9.3 (4.8-10.8) X10*3/uL Hgb 12.1 L (14.0-18.0) g/dl Hct 37.1 L (42.0-52.0) % Plt Count 236 (160-400) X10*3/uL Liver Function 08/21/24 Range/Units 06:31 Total Bilirubin 0.5 (0.0-1.0) mg/dL Direct Bilirubin 0.2 (0.0-0.5) mg/dL AST 32 (5-37) U/L ALT 35 (0-40) U/L Alkaline Phosphatase 57 (39-117) U/L Albumin 3.5 (3.5-5.0) g/dL Microbiology Microbiology Results: Microbiology 08/19/24 12:52 Blood - Venous Blood Culture - Preliminary No growth after 24 hours. 08/19/24 12:54 Blood - Venous Blood Culture - Preliminary No growth after 24 hours. Assessment and Plan (1) S/P cholecystectomy: Status: Acute (2) RUQ abdominal pain: Status: Resolved (3) Acute cholecystitis: Status: Resolved Plan 44 YM admitted to [facility] [place] on 08/19/24 with worsening RUQ pain, nausea and vomiting. 08/19/24 abd us showed: 1. Findings consistent with acute cholecystitis as described. 2. Mild hepatomegaly. Pt had a laparoscopic converted to open cholecystectomy with cholangiogram Found to have significantly inflamed gallbladder with the omental fatty tissue and duodenum stomach stuck to the gallbladder, multiple stones present and large stone impacted at the neck. GI consulted for RUQ pain with bilious outpt in the CHRISTOPHER drain with concern for a bile leak RECOMMENDATIONS: 1. Agree with pain medications and antiemetics 2. Abd US to evaluate amount of bile in the GB fossa - may need percutaneous aspiration by IR if there is a large amount of fluid 3. Pt is scheduled for an ERCP today at 12:[address] Blancas. ERCP procedure and potential complications of bleeding, perforation, reaction to anesthetics, aspiration, cholangitis and pancreatitis were reviewed with the patient. Procedures Date of Service Date of Service: 09/25/24
[2024-08-21] MEDS: Famotidine 20 MG TABLET PO ×2 (09:21→20:00)
--- NOTE | 2024-08-21 10:01 | HO.ANESPROP2 ---
[facility] Active Problems Active Problems: All Active Problems S/P cholecystectomy (Acute) Acute cholecystitis (Acute) Past Medical History Medical History Hypercholesteremia Epilepsy Family History Family history of problems with anesthesia: No Surgical History Surgical History H/O eye surgery H/O wisdom tooth extraction History of Problems with Anesthesia: No Social History Social History Household Members: None Housing: House Are you a primary acute care clinical nurse specialist to a significant other at home: No Do you presently have visiting nurse or other home services: No Alcohol intake: current Alcohol intake frequency: holidays/special occasions only Patient Tobacco Use Status: Never used Tobacco Smoked in Last 30 Days: No Use of substances other than those prescribed or required for medical reasons: No Currently Displaying Signs/Symptoms of Drug Intoxication Withdrawal: No Have you been hit, kicked, punched, or otherwise hurt by someone within the past year? If so, by whom?: No Do you feel safe in your current relationship?: No Is there a partner from a previous relationship who is making you feel unsafe now?: No Advance Directives: No Advance Directives Information Provided: No Advance Directives on File: No Do you have a plan to hurt others: No Plan Recently lost weight without trying: Yes How much weight loss: 2-13 pounds Eating poorly because of decreased appetite: Yes Nutrition screen score: 4 Nutrition Risks: No Nutritional Risk Poor oral hygiene: No service: No Meds Allergies Allergy/AdvReac Type Severity Reaction Status Date / Time codeine Allergy Severe Anaphylaxis Verified 08/21/24 09:56 Active Medications: Current Medications Famotidine (Famotidine 20 Mg Tablet) 20 mg PO BID [facility] Last Admin: 08/21/24 09:21 Dose: 20 mg Hydromorphone HCl (Hydromorphone Hcl 0.5 Mg/0.5 Ml Syringe) 0.5 mg IVPUSH Q3H PRN; Protocol PRN Reason: Pain, Severe (Pain Scale 7-10) Sodium Chloride (Ns) 1,000 mls @ 100 mls/hr IVCONT .Q10H [facility] Last Admin: 08/21/24 06:05 Dose: 100 mls/hr Acetaminophen (Ofirmev) 1,000 mg in 100 mls @ 400 mls/hr IV Q6H [facility] Last Infusion: 08/21/24 06:20 Dose: Infused Cefazolin Sodium/Dextrose (Ancef) 2 gm in 50 mls @ 100 mls/hr IV PREOP ONE Stop: 08/21/24 10:20 Ketorolac Tromethamine (Ketorolac Tromethamine 15 Mg/Ml Vial) 15 mg IVPUSH Q6H PRN PRN Reason: Pain, Severe (Pain Scale 7-10) Stop: 08/25/24 14:14 Magnesium Hydroxide (Milk Of Magnesia 30 Ml Oral.Susp) 30 ml PO DAILY PRN PRN Reason: Constipation Melatonin (Melatonin 3 Mg Tablet) 6 mg PO BEDTIME PRN PRN Reason: Insomnia Ondansetron HCl (Ondansetron Hcl 4 Mg/2 Ml Vial) 4 mg IVPUSH Q8H PRN PRN Reason: Nausea and Vomiting Last Admin: 08/21/24 05:04 Dose: 4 mg Oxycodone HCl (Oxycodone Hcl Immed Release 5 Mg Tablet) 5 mg PO Q4H PRN PRN Reason: Pain, Moderate(Pain Scale 4-6) Last Admin: 08/20/24 22:26 Dose: 5 mg Oxycodone HCl (Oxycodone Hcl Immed Release 5 Mg Tablet) 10 mg PO Q4H PRN PRN Reason: Pain, Severe (Pain Scale 7-10) Last Admin: 08/21/24 07:44 Dose: 10 mg Sodium Chloride (0.9 % Sodium Chloride Flush 3 Ml Syringe) [facility] Last Admin: 08/21/24 08:54 Dose: Not Given Home Medications ?Medication ?Instructions ?Recorded ?Confirmed ?Last Taken ?Type acetaminophen 500 mg tablet 500 mg PO DAILY PRN Pain 08/19/24 08/19/24 Unknown History dicyclomine 10 mg capsule 10 mg PO TID PRN IBS 08/19/24 08/19/24 08/19/24 History simethicone 80 mg chewable tablet 80 mg PO BEDTIME PRN Gas Relief 08/19/24 08/19/24 Unknown History Exam Height,Weight and Vital Signs: Height 5 ft 8 in Weight 78 kg Last Vital Signs Temp 97.6 F 08/21/24 07:38 Pulse 105 H 08/21/24 07:38 Resp 18 08/21/24 07:38 BP 133/77 08/21/24 07:38 Pulse Ox 92 08/21/24 07:38 O2 Del Method Room Air 08/21/24 07:38 O2 Flow Rate 3 08/20/24 12:00 Pertinent Lab Results Pertinent Lab Results: Laboratory Tests 08/19/24 08/19/24 08/20/24 12:53 15:21 05:45 WBC 9.3 11.0 H RBC 5.66 4.56 L Hgb 16.0 12.9 L Hct 47.5 38.7 L MCV 83.9 84.9 MCH 28.3 28.3 MCHC 33.7 33.3 RDW 12.1 12.2 Plt Count 255 245 MPV 9.1 L 9.2 L Immature Gran % (Auto) 0.4 0.6 H Neut % (Auto) 73.4 H 86.5 H Lymph % (Auto) 16.5 L 6.5 L [place] % (Auto) 9.0 6.3 Eos % (Auto) 0.5 0.0 Baso % (Auto) 0.2 0.1 Lymph # (Auto) 1.5 0.7 L [place] # (Auto) 0.8 0.7 Eos # (Auto) 0.1 0.0 Baso # (Auto) 0.0 0.0 Abs Immat Gran (auto) 0.04 H 0.07 H Absolute Neuts (auto) 6.9 9.5 H Absolute Nucleated RBC 0.000 0.000 Nucleated RBC % (auto) 0.0 0.0 Sodium 141 138 Potassium 4.0 4.4 Chloride 103 106 Carbon Dioxide 24 23 Anion Gap 18 13 BUN 10 11 Creatinine 1.02 0.94 Estim Creat Clear Calc 87.5 95.0 Estimated GFR > 60 > 60 Random Glucose 150 H 125 H Lactic Acid 2.2 H* Lactic Acid F/U @ 2Hr 0.8 Calcium 9.3 8.5 D Magnesium 2.0 Total Bilirubin 0.4 0.6 Direct Bilirubin AST 18 62 H ALT 22 51 H Alkaline Phosphatase 87 65 Total Protein 8.1 H 6.6 Albumin 4.4 3.4 L Lipase 28 08/21/24 06:31 WBC 9.3 RBC 4.30 L Hgb 12.1 L Hct 37.1 L MCV 86.3 MCH 28.1 MCHC 32.6 RDW 12.4 Plt Count 236 MPV 9.3 L Immature Gran % (Auto) 0.4 Neut % (Auto) 70.9 Lymph % (Auto) 19.4 L [place] % (Auto) 8.7 Eos % (Auto) 0.5 Baso % (Auto) 0.1 Lymph # (Auto) 1.8 [place] # (Auto) 0.8 Eos # (Auto) 0.1 Baso # (Auto) 0.0 Abs Immat Gran (auto) 0.04 H Absolute Neuts (auto) 6.6 Absolute Nucleated RBC 0.000 Nucleated RBC % (auto) 0.0 Sodium Potassium Chloride Carbon Dioxide Anion Gap BUN Creatinine Estim Creat Clear Calc Estimated GFR Random Glucose Lactic Acid Lactic Acid F/U @ 2Hr Calcium Magnesium Total Bilirubin 0.5 Direct Bilirubin 0.2 AST 32 ALT 35 Alkaline Phosphatase 57 Total Protein 6.5 Albumin 3.5 Lipase Airway Mallampati Class: II TM Dist: >3cm Neck ROM: Full Assessment and Plan Assessment Anesthesia Assessment: Anesthesia Plan Discussed and Chart Reviewed Final Anesthetic Review Family History of Problems with Anesthesia: No History of Problems with Anesthesia: No NPO: Yes ASA Class: II Final Preanesthetic Review: No Changes in Pt Med Stat, Meds/Allgs Chart Reviewed, Consent Obtained/Reviewed, Anes Risks/Benef Reviewed and DNR Form (If Appl.) Patient Risk: Intermediate Procedure Risk: Low Anesthetic Plan Anesthetic Plan: TIVA Disposition: Standard PACU
[2024-08-21] MEDS: iohexoL 350 MG/ML 100 ML INFUS..BTL IV (10:31)
--- NOTE | 2024-08-21 11:03 | MHC.SHP ---
Pre-Procedural Eval Section A - 24 Hr Update-Section A only Date of Service: 08/21/24 The patient is an INPATIENT: Yes The patient has been examined within 24 hours of the surgical procedure. The History & Physical has been completed within 30 days and I have reviewed it.: Yes Section B - Complete if H&P > 30 days Chief Complaint: Abd pain, sent by Allergies: Allergies Allergy/AdvReac Type Severity Reaction Status Date / Time codeine Allergy Severe Anaphylaxis Verified 08/21/24 09:56 Plan I have reviewed the history and physical and performed a pertinent physical examination on my patient. No changes have occurred unless specified. ERCP for suspected bile leak with high bile output from CHRISTOPHER drain Time Spent With Patient Time: Total time managing care of this patient today ____ minutes.
--- NOTE | 2024-08-21 12:03 | P.OP_ITS ---
Operative Note Operative Note Date of Service: 08/21/24 Narrative: Description:?Endoscopic retrograde cholangiopancreatography (ERCP) PROCEDURE:?Endoscopic retrograde cholangiopancreatography with intraop cholangiogram, sphincterotomy and stent placement INDICATION FOR THE PROCEDURE:?Patient with a history of cholecystectomy with high output from CHRISTOPHER, concern for bile leak after prolonged cholecystectomy MEDICATIONS:?General anesthesia. The risks of the procedure were made aware to the patient and consisted of medication reaction, bleeding, perforation, aspiration, and post ERCP pancreati tis. DESCRIPTION OF PROCEDURE:?After informed consent and appropriate sedation, the duodenoscope was inserted into the oropharynx, down the esophagus, and into the stomach. The scope was then advanced through the pylorus to the ampulla. Bile was noted coming from the papilla, the tome was angled and entered the CBD easily. A cholnagiogram was obtained and a possible filling defect noted in the distal CBD with some leakage of contrast around the drain. A sphincterotomy was performed and an extraction balloon was exchanged and swept across the CBD with no stones or debris retrieved. A repeat occlusion cholangiogram was neg for filling defects. A 10 fr x 7 cm plastic stent was then exchanged and placed with good bilious output noted/ FINDINGS: 1. bile leak RECOMMENDATIONS: 1. NPO except for ice chips then clears tonight at 6 pm if no abdominal pain, can advance diet tomorrow if he feels well 2. repeat ERCP in 6-8 weeks to removed stent
[2024-08-21] MEDS: droPERidol 5 MG/2 ML VIAL 0.625 MG IVPUSH (12:33)
--- NOTE | 2024-08-21 15:48 | P.CONIM_ITS ---
History of Present Illness Data of Consult Service Date: 08/21/24 Requesting physician: Celso Ross Primary Care Provider: Gene Rivera MD HPI Reason for consult: hypoxia This is a 44 year old who presented with abdominal pain and underwent cholecystectomy on 08/19 which required conversion to open due to significantly inflamed gallbladder with omental fatty tissue and duodenum to the gallbladder, multiple stones and large stone impacted at the neck. Postoperatively was noted to have increased bilious output, was seen by GI and underwent ERCP today with placement of biliary stent. After the procedure he was noted to have increasing hypoxia and the hospitalist service was asked to see him in consultation. Chest x-ray showing possible pulmonary edema and bilateral lung base atelectasis. Possible cardiomegaly versus pericardial effusion. Initially patient required 10 L of supplemental oxygen but has now been weaned down to 2 L without any intervention. Patient denies shortness of breath, cough, fever, chills. Does report abdominal pain, bloating, distention and not taking full breaths. He has no lower extremity edema. He denies any history of lung disease or heart disease. Review of Systems 2 Review of Systems: Yes all other systems are reviewed and are negative Constitutional: Constitutional: Denies chills and Denies fever(s) Cardiovascular: Cardiovascular: Denies chest pain and Denies dyspnea Respiratory: Respiratory: Denies cough and Denies dyspnea Gastrointestinal: Gastrointestinal: Reports abdominal pain and Reports bloating PMFSH Medical History Hypercholesteremia Epilepsy Surgical History H/O eye surgery H/O wisdom tooth extraction Social History Household Members: None Housing: House Are you a primary healthcare representative to a significant other at home: No Do you presently have visiting nurse or other home services: No Alcohol intake: current Alcohol intake frequency: holidays/special occasions only Patient Tobacco Use Status: Never used Tobacco Smoked in Last 30 Days: No Use of substances other than those prescribed or required for medical reasons: No Currently Displaying Signs/Symptoms of Drug Intoxication Withdrawal: No Have you been hit, kicked, punched, or otherwise hurt by someone within the past year? If so, by whom?: No Do you feel safe in your current relationship?: No Is there a partner from a previous relationship who is making you feel unsafe now?: No Advance Directives: No Advance Directives Information Provided: No Advance Directives on File: No Do you have a plan to hurt others: No Plan Recently lost weight without trying: Yes How much weight loss: 2-13 pounds Eating poorly because of decreased appetite: Yes Nutrition screen score: 4 Nutrition Risks: No Nutritional Risk Poor oral hygiene: No service: No Meds Allergies Allergy/AdvReac Type Severity Reaction Status Date / Time codeine Allergy Severe Anaphylaxis Verified 08/21/24 09:56 Active Medications: Current Medications Famotidine (Famotidine 20 Mg Tablet) 20 mg PO BID [facility] Last Admin: 08/21/24 09:21 Dose: 20 mg Fentanyl (Fentanyl Citrate/Pf 100 Mcg/2 Ml Vial) 50 mcg IVPUSH Q5M PRN PRN Reason: Pain, Moderate to Severe (Pain Scale 4-10) Stop: 08/21/24 16:02 Hydromorphone HCl (Hydromorphone Hcl 0.5 Mg/0.5 Ml Syringe) 0.5 mg IVPUSH Q3H PRN; Protocol PRN Reason: Pain, Severe (Pain Scale 7-10) Sodium Chloride (Ns) 1,000 mls @ 100 mls/hr IVCONT .Q10H [facility] Last Admin: 08/21/24 06:05 Dose: 100 mls/hr Acetaminophen (Ofirmev) 1,000 mg in 100 mls @ 400 mls/hr IV Q6H [facility] Last Infusion: 08/21/24 15:02 Dose: Infused Acetaminophen (Ofirmev) 1,000 mg in 100 mls @ 400 mls/hr IV ONCE ONE Stop: 08/21/24 19:14 Ketorolac Tromethamine (Ketorolac Tromethamine 15 Mg/Ml Vial) 15 mg IVPUSH Q6H PRN PRN Reason: Pain, Severe (Pain Scale 7-10) Stop: 08/25/24 14:14 Magnesium Hydroxide (Milk Of Magnesia 30 Ml Oral.Susp) 30 ml PO DAILY PRN PRN Reason: Constipation Melatonin (Melatonin 3 Mg Tablet) 6 mg PO BEDTIME PRN PRN Reason: Insomnia Naloxone HCl (Naloxone Hcl 0.4 Mg/Ml Vial) 0.04 mg IVPUSH Q5M PRN PRN Reason: Excessive sedation or RR < 8 Ondansetron HCl (Ondansetron Hcl 4 Mg/2 Ml Vial) 4 mg IVPUSH Q8H PRN PRN Reason: Nausea and Vomiting Last Admin: 08/21/24 05:04 Dose: 4 mg Oxycodone HCl (Oxycodone Hcl Immed Release 5 Mg Tablet) 5 mg PO Q4H PRN PRN Reason: Pain, Moderate(Pain Scale 4-6) Last Admin: 08/20/24 22:26 Dose: 5 mg Oxycodone HCl (Oxycodone Hcl Immed Release 5 Mg Tablet) 10 mg PO Q4H PRN PRN Reason: Pain, Severe (Pain Scale 7-10) Last Admin: 08/21/24 07:44 Dose: 10 mg Sodium Chloride (0.9 % Sodium Chloride Flush 3 Ml Syringe) [facility] Last Admin: 08/21/24 08:54 Dose: Not Given Home Medications ?Medication ?Instructions ?Recorded ?Confirmed ?Last Taken ?Type acetaminophen 500 mg tablet 500 mg PO DAILY PRN Pain 08/19/24 08/19/24 Unknown History dicyclomine 10 mg capsule 10 mg PO TID PRN IBS 08/19/24 08/19/24 08/19/24 History simethicone 80 mg chewable tablet 80 mg PO BEDTIME PRN Gas Relief 08/19/24 08/19/24 Unknown History Physical Exam 2 Vital Signs and Narrative: Vital Signs: Last Vital Signs Temp 99.1 F 08/21/24 14:50 Pulse 89 08/21/24 14:50 Resp 18 08/21/24 14:50 BP 142/81 H 08/21/24 14:50 Pulse Ox 95 08/21/24 14:50 O2 Del Method Oxymask 08/21/24 14:50 O2 Flow Rate 4 08/21/24 14:50 FiO2 48 08/21/24 14:08 BMI result Body Mass Index 26.1 Const: General: no acute distress, alert and awake Nutritional Appearance: average body habitus Orientation/consciousness: patient oriented x3 Resp: Other: appears comfortable, no respiratory distress, decreased respiratory effort; limited by pain Effort & Inspection: no respiratory distress and no use of accessory muscles Cardio: Rate: regular rate GI: Other: CHRISTOPHER drain with scant output; abdominal dressings clean and dry; abdomen softly distended Inspection: No distended Palpation (GI): Soft to palpation and nontender Neuro: General: patient oriented x3, moves all extremities and CN's II-XI intact bilaterally Results Labs 08/21/24 06:31 08/20/24 05:45 Labs: Laboratory Results - last 24 hr 08/21/24 06:31 MCV 86.3 MCH 28.1 MCHC 32.6 RDW 12.4 Plt Count 236 MPV 9.3 L Immature Gran % (Auto) 0.4 Neut % (Auto) 70.9 Lymph % (Auto) 19.4 L [place] % (Auto) 8.7 Eos % (Auto) 0.5 Baso % (Auto) 0.1 Lymph # (Auto) 1.8 [place] # (Auto) 0.8 Eos # (Auto) 0.1 Baso # (Auto) 0.0 Abs Immat Gran (auto) 0.04 H Absolute Neuts (auto) 6.6 Absolute Nucleated RBC 0.000 Nucleated RBC % (auto) 0.0 Total Bilirubin 0.5 Direct Bilirubin 0.2 AST 32 ALT 35 Alkaline Phosphatase 57 Total Protein 6.5 Albumin 3.5 Imaging Radiologist's Impressions: Impressions Guidance Fluoroscopy 08/19/24 21:10 IMPRESSION: Fluoroscopy during procedure. Please see procedure report for additional information. Electronically signed by: Jean Carlos Tee MD 08/21/2024 08:53 AM EST RP Abdomen/Pelvis CT 08/21/24 10:17 IMPRESSION: 1. Status post cholecystectomy. CHRISTOPHER drain and a small amount of fluid in the gallbladder fossa without evidence of a loculated fluid collection. 2. Findings suggestive of ileus as described. 3. Airspace opacity at the lung bases consistent with atelectasis or pneumonia. Electronically signed by: Jean Carlos Tee MD 08/21/2024 10:52 AM EST RP Guidance Fluoroscopy 08/21/24 11:15 IMPRESSION: Fluoroscopy during procedure. Please see procedure report for additional information. Electronically signed by: Jean Carlos Tee MD 08/21/2024 02:55 PM EST RP Chest X-Ray 08/21/24 12:40 IMPRESSION: Consider pulmonary edema and bilateral lung bases atelectasis. Cardiomegaly versus pericardial effusion. Ileus versus bowel obstruction. Electronically signed by: Yrn Marina MD 08/21/2024 01:00 PM EST RP KUB X-Ray 08/21/24 12:40 IMPRESSION: Moderate gas in the colon likely secondary ERCP with new biliary stent in place. Gallbladder has been surgically removed with surgical drainage in the gallbladder fossa. Electronically signed by: Manuel Shipman MD 08/21/2024 01:35 PM EST RP Assessment and Plan (1) Hypoxia: Status: Acute Plan This is a 44 year male presented with abdominal pain found to have acute cholecystitis status post cholecystectomy requiring conversion to open, course complicated by bile leak status post ERCP with biliary stent as well as post operative hypoxia Acute respiratory failure with hypoxia Initially requiring 10 L, now down to 2 L nasal cannula Likely due to bilateral atelectasis due to pain related to recent surgery, anesthesia, and apparent ileus No white count or fever to suggest infection Chest x-ray showing possibility of pulmonary edema, although oxygen demands have decreased without intervention making this less likely will check BNP. pt is overall positive on Is&Os -recommend IS, ambulation when safe from surgical perspective -will check BNP, if elevated will consider a dose of IV lasix -will repeat cxr in am given question of pericardial effusion, if repeat similar will consider echo -continue to wean o2 as tolerated no other acute medical issues at this time. thank you for allowing us to participate in the care of this patient. We will follow along with
[2024-08-21 16:06] LABS: Anion Gap 14 (12-20); Blood Urea Nitrogen 9 mg/dL (9-16); Calcium 8.6 mg/dL (8.4-10.2); Carbon Dioxide 23 mmol/L (22-29); Chloride 106 mmol/L (96-108); Creatinine Clr Calc Pharmacy 101.4; Estimated Glomerular Filt Rate > 60; Glucose Random 108 mg/dL (60-115); Potassium 4.3 mmol/L (3.3-5.1); Sodium 139 mmol/L (135-145)
[2024-08-21 16:13] LABS: B Type Natriuretic Peptide 19 pg/mL (<100)
[2024-08-21] MEDS: 0.9 % Sodium Chloride Flush 3 ML SYRINGE IVFLUSH (20:04)
--- NOTE | 2024-08-21 23:02 | PC.NURSE ---
Assumed care of patient at 19:00. Pt is A&Ox4. Lungs clear/diminished throughout. Pt on 2L oxymask on assuming care, spo2 maintained per MD order. Pt denies sob. Breathing is even and unlabored without distress at rest and with ambulating to the BR. Achieving 1500 on IS with encouragement to use but good technique. +BSx4. Abdomen is softly distended, round, appropriately tender to surgical incisions. CHRISTOPHER drain continues to RT abdomen to bulb sx per order, intact and patent of serosanguineous output. Call adam within reach and educated on use, pt rings appropriately to make needs known. Please see loan underwriter?s shift assessment, tasks in worklist, and MAR for full details. Handoff report given to oncoming RN at 23:00.
[2024-08-22] MEDS: Acetaminophen 1,000 MG/100 ML PIGGYBACK 400 MG IV ×4 (01:07→18:14)
[2024-08-22 04:00] VITALS: BP 120/72; PULSE 84; RESP 18; TEMP 36.6; O2SAT 94
[2024-08-22] MEDS: oxyCODONE HCl Immed Release 5 MG TABLET 10 MG PO (07:33)
[2024-08-22] MEDS: Famotidine 20 MG TABLET PO ×2 (07:34→22:29)
[2024-08-22 08:00] VITALS: BP 145/84; PULSE 84; RESP 18; TEMP 36.4; O2SAT 98
--- NOTE | 2024-08-22 08:15 | PM.PNGS ---
Subjective Subjective Date of Service: 08/22/24 Interval history: Patient feels improved this morning with less abdominal pain. He does report some gas discomfort. CHRISTOPHER output has decreased is more serosanguineous. Physical Exam Vital Signs: Vital Signs: Last Vital Signs Temp 97.5 F 08/22/24 08:00 Pulse 84 08/22/24 08:00 Resp 18 08/22/24 08:00 BP 145/84 H 08/22/24 08:00 Pulse Ox 98 08/22/24 08:00 O2 Del Method Oxymask 08/22/24 08:00 O2 Flow Rate 2 08/22/24 08:00 FiO2 48 08/21/24 14:08 BMI result Body Mass Index 26.1 Const: General: no acute distress Nutritional Appearance: well nourished Orientation/consciousness: patient oriented x3 Resp: Other: On facemask 3 L O2 sat 94% Effort & Inspection: normal respiratory effort GI: Other: Incisions clean and intact. CHRISTOPHER with serosanguineous output, no bile identified. Skin: Other: Warm, dry, no rash, normal color Neuro: General: patient oriented x3 Objective Data Active Medications Famotidine (Famotidine 20 Mg Tablet) 20 mg PO BID [facility] Last Admin: 08/22/24 07:34 Dose: 20 mg Documented By: MARVEL Hydromorphone HCl (Hydromorphone Hcl 0.5 Mg/0.5 Ml Syringe) 0.5 mg IVPUSH Q3H PRN; Protocol PRN Reason: Pain, Severe (Pain Scale 7-10) Sodium Chloride (Ns) 1,000 mls @ 100 mls/hr IVCONT .Q10H [facility] Last Admin: 08/21/24 23:45 Dose: 100 mls/hr Documented By: MATTHEW Acetaminophen (Ofirmev) 1,000 mg in 100 mls @ 400 mls/hr IV Q6H [facility] Last Infusion: 08/22/24 06:40 Dose: Infused Documented By: MATTHEW Ketorolac Tromethamine (Ketorolac Tromethamine 15 Mg/Ml Vial) 15 mg IVPUSH Q6H PRN PRN Reason: Pain, Severe (Pain Scale 7-10) Stop: 08/25/24 14:14 Magnesium Hydroxide (Milk Of Magnesia 30 Ml Oral.Susp) 30 ml PO DAILY PRN PRN Reason: Constipation Melatonin (Melatonin 3 Mg Tablet) 6 mg PO BEDTIME PRN PRN Reason: Insomnia Naloxone HCl (Naloxone Hcl 0.4 Mg/Ml Vial) 0.04 mg IVPUSH Q5M PRN PRN Reason: Excessive sedation or RR < 8 Ondansetron HCl (Ondansetron Hcl 4 Mg/2 Ml Vial) 4 mg IVPUSH Q8H PRN PRN Reason: Nausea and Vomiting Last Admin: 08/21/24 05:04 Dose: 4 mg Documented By: GARO Oxycodone HCl (Oxycodone Hcl Immed Release 5 Mg Tablet) 5 mg PO Q4H PRN PRN Reason: Pain, Moderate(Pain Scale 4-6) Last Admin: 08/20/24 22:26 Dose: 5 mg Documented By: GARO Oxycodone HCl (Oxycodone Hcl Immed Release 5 Mg Tablet) 10 mg PO Q4H PRN PRN Reason: Pain, Severe (Pain Scale 7-10) Last Admin: 08/22/24 07:33 Dose: 10 mg Documented By: MARVEL Sodium Chloride (0.9 % Sodium Chloride Flush 3 Ml Syringe) [facility] Last Admin: 08/22/24 07:30 Dose: Not Given Documented By: MARVEL Non-Admin Reason: IV Running Labs 08/21/24 06:31 08/21/24 15:47 Labs: Laboratory Results - last 24 hr 08/21/24 15:47 Anion Gap 14 Estim Creat Clear Calc 101.4 Estimated GFR > 60 Random Glucose 108 Calcium 8.6 B-Natriuretic Peptide 19 Microbiology Microbiology Results: Microbiology 08/19/24 12:52 Blood Culture - Preliminary Blood - Venous No growth after 48 hours. 08/19/24 12:54 Blood Culture - Preliminary Blood - Venous No growth after 48 hours. Procedures Date of Service Date of Service: 08/22/24 Progress Note: A&P Assessment and plan (1) S/P cholecystectomy: Status: Acute (2) Acute cholecystitis: Status: Acute Plan 44-year-old male status post open cholecystectomy for acute cholecystitis, noted to have bile leak. He is now pod 1 following ERCP with stent placement. He tolerated the procedure well and feels improved this morning. We will continue to monitor CHRISTOPHER output. Advanced to full liquid diet. Encouraged incentive spirometry, out of bed and ambulation. Time Spent With Patient Time: Total time managing care of this patient today ____ minutes. Quality Stroke Does the patient have a stroke diagnosis?: No VTE Prior VTE?: No VTE Risk Level:: Surgical - low VTE Device Contraindication: N/A - Device Ordered VTE Drug Contraindication: Treatment Not Indicated
--- NOTE | 2024-08-22 09:22 | MHC.CM.PN ---
No Discharge today. S/P Open Bee 08/19/24. A bile leak Post Op. POD# 1 following ERCP with stent placement. Patient continues with CHRISTOPHER drain. Diet advanced to full liquid. DP Home self care and self transport when medically cleared.
[2024-08-22] MEDS: 0.9 % Sodium Chloride 1,000 ML 100 ML IVCONT (10:24)
--- NOTE | 2024-08-22 10:24 | P.PNGI_ITS ---
Subjective Subjective Date of Service: 08/22/24 Interval History: much improved no sob no cough no abdominal pain Critical Care Time (minutes): 0 Physical Exam 2 Vital Signs: Vital Signs: Last Vital Signs Temp 97.5 F 08/22/24 08:00 Pulse 84 08/22/24 08:00 Resp 18 08/22/24 08:00 BP 145/84 H 08/22/24 08:00 Pulse Ox 98 08/22/24 08:00 O2 Del Method Oxymask 08/22/24 08:00 O2 Flow Rate 2 08/22/24 08:00 FiO2 48 08/21/24 14:08 BMI result Body Mass Index 26.1 EXAM: GENERAL: The patient is well developed and nontoxic. VITAL SIGNS:see workflow HEENT: Nonicteric sclerae, PERRLA, EOMI. Oropharynx clear. Moist mucous membranes. Conjunctivae appear well perfused. No thyroid mass. CHEST: Chest wall is nontender. HEART: Regular rate and rhythm without murmurs. LUNGS: Clear to auscultation bilaterally. ABDOMEN: Soft, positive bowel sounds, nontender, no organomegaly.no flank tenderness SKIN: No rash, no excessive bruising, petechiae, or purpura. NEUROLOGIC: Cranial nerves II-XII intact without motor/sensory deficit. Psych: normal affect Objective Data Labs 08/21/24 06:31 08/21/24 15:47 Labs: Laboratory Results - last 24 hr 08/21/24 15:47 Sodium 139 Potassium 4.3 Chloride 106 Carbon Dioxide 23 Anion Gap 14 BUN 9 Creatinine 0.88 Estim Creat Clear Calc 101.4 Estimated GFR > 60 Random Glucose 108 Calcium 8.6 B-Natriuretic Peptide 19 Microbiology Microbiology Results: Microbiology 08/19/24 12:52 Blood - Venous Blood Culture - Preliminary No growth after 48 hours. 08/19/24 12:54 Blood - Venous Blood Culture - Preliminary No growth after 48 hours. Procedures Date of Service Date of Service: 08/22/24 Progress Note: A&P Assessment and plan (1) Bile leak, postoperative: Status: Acute Plan 1/ bile leak s/p stent placement PLAN: 1/ advance diet as tolerated 2/ repeat ERCP 6-8 weeks for stent removal Time Spent With Patient Time: Total time managing care of this patient today ____ minutes. Quality Stroke Does the patient have a stroke diagnosis?: No VTE Prior VTE?: No VTE Risk Level:: Surgical - low VTE Device Contraindication: N/A - Device Ordered VTE Drug Contraindication: Treatment Not Indicated
[2024-08-22 11:31] VITALS: BP 124/65; PULSE 94; RESP 17; TEMP 36.8; O2SAT 95
--- NOTE | 2024-08-22 13:55 | HO.POSTANES ---
Post Anesthesia Evaluation Post Anesthesia Evaluation Date of Service: 08/22/24 Vital Signs: Vital Signs Temp Pulse Resp BP Pulse Ox O2 Del Method O2 Flow Rate 08/22/24 11:31 98.2 F 94 17 124/65 95 Oxymask 2 08/22/24 08:00 97.5 F 84 18 145/84 H 98 Oxymask 2 08/22/24 07:49 Oxymask 08/22/24 04:00 97.8 F 84 18 120/72 94 Oxymask 3 Anesthesia: General Endotracheal-GETA Mental Status: Awake Pain Control: Satisfactory Nausea/Vomiting: None Hydration: Adequate Comments: Patient had low oxygen saturation in PACU after his ERCP; chest x-ray performed and thought to be due to aspiration. Patient was placed on 6-7L/min OxyMask by respiratory therapy team and was able to maintain appropriate oxygen saturation prior to transfer back to the floor. Patient's condition appears to be improved this morning, only requiring 2L of support. Continue care per primary team. Anesthesia team to follow-up as necessary.
--- NOTE | 2024-08-22 14:28 | P.PNIM_ITS ---
Subjective Subjective Date of Service: 08/22/24 Interval History: seen and examined this morning follow up for hypoxia Feeling well this morning, pain improving. Denies shortness or breath, no cough Review of Systems Review of Systems: Yes all other systems are reviewed and are negative Constitutional Constitutional: Denies chills and Denies fever(s) Cardiovascular Cardiovascular: Denies chest pain, Denies palpitations and Denies dyspnea Respiratory Respiratory: Denies cough and Denies dyspnea Endocrine Endocrine: Denies palpitations Physical Exam 2 Vital Signs: Vital Signs: Last Vital Signs Temp 98.2 F 08/22/24 11:31 Pulse 94 08/22/24 11:31 Resp 17 08/22/24 11:31 BP 124/65 08/22/24 11:31 Pulse Ox 95 08/22/24 11:31 O2 Del Method Oxymask 08/22/24 11:31 O2 Flow Rate 2 08/22/24 11:31 FiO2 48 08/21/24 14:08 BMI result Body Mass Index 26.1 Const: General: no acute distress, alert and awake Nutritional Appearance: average body habitus Orientation/consciousness: patient oriented x3 Resp: Other: appears comfortable, no respiratory distress; respiratory effort improved. no wheeze or rhonchi Effort & Inspection: no respiratory distress and no use of accessory muscles Cardio: Rate: regular rate GI: Other: CHRISTOPHER drain with scant output; abdominal dressings clean and dry; abdomen softly distended Inspection: No distended Palpation (GI): Soft to palpation and nontender Neuro: General: patient oriented x3, moves all extremities and CN's II-XI intact bilaterally Objective Data Active Medications Famotidine (Famotidine 20 Mg Tablet) 20 mg PO BID [facility] Last Admin: 08/22/24 07:34 Dose: 20 mg Documented By: MARVEL Hydromorphone HCl (Hydromorphone Hcl 0.5 Mg/0.5 Ml Syringe) 0.5 mg IVPUSH Q3H PRN; Protocol PRN Reason: Pain, Severe (Pain Scale 7-10) Acetaminophen (Ofirmev) 1,000 mg in 100 mls @ 400 mls/hr IV Q6H [facility] Last Infusion: 08/22/24 12:27 Dose: Infused Documented By: MARVEL Ketorolac Tromethamine (Ketorolac Tromethamine 15 Mg/Ml Vial) 15 mg IVPUSH Q6H PRN PRN Reason: Pain, Severe (Pain Scale 7-10) Stop: 08/25/24 14:14 Magnesium Hydroxide (Milk Of Magnesia 30 Ml Oral.Susp) 30 ml PO DAILY PRN PRN Reason: Constipation Melatonin (Melatonin 3 Mg Tablet) 6 mg PO BEDTIME PRN PRN Reason: Insomnia Ondansetron HCl (Ondansetron Hcl 4 Mg/2 Ml Vial) 4 mg IVPUSH Q8H PRN PRN Reason: Nausea and Vomiting Last Admin: 08/21/24 05:04 Dose: 4 mg Documented By: GARO Oxycodone HCl (Oxycodone Hcl Immed Release 5 Mg Tablet) 5 mg PO Q4H PRN PRN Reason: Pain, Moderate(Pain Scale 4-6) Last Admin: 08/20/24 22:26 Dose: 5 mg Documented By: GARO Oxycodone HCl (Oxycodone Hcl Immed Release 5 Mg Tablet) 10 mg PO Q4H PRN PRN Reason: Pain, Severe (Pain Scale 7-10) Last Admin: 08/22/24 07:33 Dose: 10 mg Documented By: MARVEL Sodium Chloride (0.9 % Sodium Chloride Flush 3 Ml Syringe) 3 ml IVFLUSH [facility] Last Admin: 08/22/24 07:30 Dose: Not Given Documented By: MARVEL Non-Admin Reason: IV Running Labs 08/21/24 06:31 08/21/24 15:47 Labs: Laboratory Results - last 24 hr 08/21/24 15:47 Anion Gap 14 Estim Creat Clear Calc 101.4 Estimated GFR > 60 Random Glucose 108 Calcium 8.6 B-Natriuretic Peptide 19 Microbiology Microbiology Results: Microbiology 08/19/24 12:52 Blood Culture - Preliminary Blood - Venous No growth after 48 hours. 08/19/24 12:54 Blood Culture - Preliminary Blood - Venous No growth after 48 hours. Assessment and Plan (1) Hypoxia: Status: Acute Plan This is a 44 year male who presented with abdominal pain found to have acute cholecystitis status post cholecystectomy requiring conversion to open, course complicated by bile leak status post ERCP 08/22 with biliary stent placement as well as post operative hypoxia Acute respiratory failure with hypoxia Initially requiring 10 L, now down to 2 L nasal cannula Likely due to bilateral atelectasis due to pain related to recent surgery, anesthesia, and apparent ileus No white count or fever to suggest infection repeat 2 view xray with bilateral atelectasis, no vascular congestion, heart normal in size BNP low no evidence of CHF recommend IS, ambulation as tolerated; continue to wean o2 the remainder of management as per surgical team no other acute medical issues at this time. thank you for allowing us to participate in the care of this patient. We will follow along with Quality Stroke Does the patient have a stroke diagnosis?: No VTE Prior VTE?: No VTE Risk Level:: Surgical - low VTE Device Contraindication: N/A - Device Ordered VTE Drug Contraindication: Treatment Not Indicated
[2024-08-22 15:44] VITALS: BP 142/89; PULSE 101; RESP 18; TEMP 37.2; O2SAT 96
[2024-08-22] MEDS: 0.9 % Sodium Chloride Flush 3 ML SYRINGE IVFLUSH ×2 (16:40→22:29)
[2024-08-22 20:00] VITALS: BP 133/79; PULSE 99; RESP 14; TEMP 36.3; O2SAT 94
[2024-08-23] VITALS: BP 135/83; PULSE 83; RESP 16; TEMP 36.5; O2SAT 93
[2024-08-23] MEDS: Acetaminophen 1,000 MG/100 ML PIGGYBACK 400 MG IV ×4 (02:00→19:33)
[2024-08-23 03:26] VITALS: BP 133/82; PULSE 95; RESP 18; TEMP 36.2; O2SAT 96
[2024-08-23 07:22] VITALS: BP 138/78; PULSE 88; RESP 16; TEMP 36.1; O2SAT 96
[2024-08-23] MEDS: Famotidine 20 MG TABLET PO ×2 (09:37→19:32)
[2024-08-23] MEDS: Ketorolac Tromethamine 15 MG/ML VIAL IVPUSH ×2 (09:38→19:32)
[2024-08-23] MEDS: 0.9 % Sodium Chloride Flush 3 ML SYRINGE IVFLUSH ×2 (09:48→15:33)
--- NOTE | 2024-08-23 10:46 | HO.PM.IMPN ---
Subjective Subjective Date of Service: 08/23/24 Interval History: seen and examined this morning follow up for medical consultation breathing easier, no sob; off oxygen abdominal pain improving Review of Systems Review of Systems: Yes all other systems are reviewed and are negative Constitutional Constitutional: Denies chills and Denies fever(s) Cardiovascular Cardiovascular: Denies chest pain and Denies palpitations Endocrine Endocrine: Denies palpitations Physical Exam Vital Signs: Vital Signs: Last Vital Signs Temp 96.9 F 08/23/24 07:22 Pulse 88 08/23/24 07:22 Resp 16 08/23/24 07:22 BP 138/78 08/23/24 07:22 Pulse Ox 96 08/23/24 07:22 O2 Del Method Room Air 08/23/24 07:22 O2 Flow Rate 1 08/22/24 15:44 FiO2 48 08/21/24 14:08 BMI result Body Mass Index 26.1 Const: General: no acute distress, alert and awake Nutritional Appearance: average body habitus Orientation/consciousness: patient oriented x3 Resp: Other: appears comfortable, no respiratory distress; respiratory effort improved. no wheeze or rhonchi Effort & Inspection: no respiratory distress and no use of accessory muscles Cardio: Rate: regular rate GI: Other: CHRISTOPHER drain with scant output; abdominal dressings clean and dry; abdomen softly distended Inspection: No distended Palpation (GI): Soft to palpation and nontender Neuro: General: patient oriented x3, moves all extremities and CN's II-XI intact bilaterally Objective Data Active Medications Famotidine (Famotidine 20 Mg Tablet) 20 mg PO BID [facility] Last Admin: 08/23/24 09:37 Dose: 20 mg Documented By: DIONICIO Hydromorphone HCl (Hydromorphone Hcl 0.5 Mg/0.5 Ml Syringe) 0.5 mg IVPUSH Q3H PRN; Protocol PRN Reason: Pain, Severe (Pain Scale 7-10) Acetaminophen (Ofirmev) 1,000 mg in 100 mls @ 400 mls/hr IV Q6H [facility] Last Infusion: 08/23/24 10:28 Dose: Infused Documented By: DIONICIO Ketorolac Tromethamine (Ketorolac Tromethamine 15 Mg/Ml Vial) 15 mg IVPUSH Q6H PRN PRN Reason: Pain, Severe (Pain Scale 7-10) Stop: 08/25/24 14:14 Last Admin: 08/23/24 09:38 Dose: 15 mg Documented By: DIONICIO Magnesium Hydroxide (Milk Of Magnesia 30 Ml Oral.Susp) 30 ml PO DAILY PRN PRN Reason: Constipation Melatonin (Melatonin 3 Mg Tablet) 6 mg PO BEDTIME PRN PRN Reason: Insomnia Ondansetron HCl (Ondansetron Hcl 4 Mg/2 Ml Vial) 4 mg IVPUSH Q8H PRN PRN Reason: Nausea and Vomiting Last Admin: 08/21/24 05:04 Dose: 4 mg Documented By: GARO Oxycodone HCl (Oxycodone Hcl Immed Release 5 Mg Tablet) 5 mg PO Q4H PRN PRN Reason: Pain, Moderate(Pain Scale 4-6) Last Admin: 08/20/24 22:26 Dose: 5 mg Documented By: GARO Oxycodone HCl (Oxycodone Hcl Immed Release 5 Mg Tablet) 10 mg PO Q4H PRN PRN Reason: Pain, Severe (Pain Scale 7-10) Last Admin: 08/22/24 07:33 Dose: 10 mg Documented By: MARVEL Sodium Chloride (0.9 % Sodium Chloride Flush 3 Ml Syringe) 3 ml IVFSH [facility] Last Admin: 08/23/24 09:48 Dose: 3 ml Documented By: DIONICIO Labs 08/21/24 06:31 08/21/24 15:47 Assessment and Plan (1) Hypoxia: Status: Acute Plan This is a 44 year male who presented with abdominal pain found to have acute cholecystitis status post cholecystectomy requiring conversion to open, course complicated by bile leak status post ERCP 08/22 with biliary stent placement as well as post operative hypoxia Acute respiratory failure with hypoxia Likely due to bilateral atelectasis due to pain related to recent surgery, anesthesia, and ileus. now resolved, back on room air. No white count or fever to suggest infection repeat 2 view xray with bilateral atelectasis, no vascular congestion, heart normal in size BNP low no evidence of CHF recommend IS, ambulation as tolerated; continue to wean o2 the remainder of management as per surgical team no other acute medical issues at this time. we will sign off. please feel free to call us if any new medical issues arise. Quality Stroke Does the patient have a stroke diagnosis?: No VTE Prior VTE?: No VTE Risk Level:: Surgical - low VTE Device Contraindication: N/A - Device Ordered VTE Drug Contraindication: Treatment Not Indicated
[2024-08-23 12:00] VITALS: BP 121/72; PULSE 88; RESP 16; TEMP 36.3; O2SAT 95
[2024-08-23 15:10] VITALS: BP 132/74; PULSE 94; RESP 16; TEMP 37.1; O2SAT 95
--- NOTE | 2024-08-23 15:21 | P.PNGS_ITS ---
Subjective Subjective Date of Service: 08/23/24 Interval history: Patient feeling better no new issues no nausea breathing is good abdomen feels good passing some gas no bowel movement as yet tolerating p.o. liquids well CHRISTOPHER drain with more serous fluid Physical Exam 2 Vital Signs: Vital Signs: Last Vital Signs Temp 98.7 F 08/23/24 15:10 Pulse 94 08/23/24 15:10 Resp 16 08/23/24 15:10 BP 132/74 08/23/24 15:10 Pulse Ox 95 08/23/24 15:10 O2 Del Method Room Air 08/23/24 15:10 O2 Flow Rate 1 08/22/24 15:44 FiO2 48 08/21/24 14:08 BMI result Body Mass Index 26.1 Resp: Effort & Inspection: normal respiratory effort Auscultation: clear to auscultation bilaterally Cardio: Rate: regular rate Rhythm: regular rhythm GI: Other: Abdomen is soft mildly distended good bowel sounds tenderness around the incision sites which look good. CHRISTOPHER drain draining serosanguineous type fluid not as obvious bile and output much less Skin: Other: Nonicteric Objective Data Active Medications Famotidine (Famotidine 20 Mg Tablet) 20 mg PO BID [facility] Last Admin: 08/23/24 09:37 Dose: 20 mg Documented By: DIONICIO Hydromorphone HCl (Hydromorphone Hcl 0.5 Mg/0.5 Ml Syringe) 0.5 mg IVPUSH Q3H PRN; Protocol PRN Reason: Pain, Severe (Pain Scale 7-10) Acetaminophen (Ofirmev) 1,000 mg in 100 mls @ 400 mls/hr IV Q6H [facility] Last Infusion: 08/23/24 10:28 Dose: Infused Documented By: DIONICIO Ketorolac Tromethamine (Ketorolac Tromethamine 15 Mg/Ml Vial) 15 mg IVPUSH Q6H PRN PRN Reason: Pain, Severe (Pain Scale 7-10) Stop: 08/25/24 14:14 Last Admin: 08/23/24 09:38 Dose: 15 mg Documented By: DIONICIO Magnesium Hydroxide (Milk Of Magnesia 30 Ml Oral.Susp) 30 ml PO DAILY PRN PRN Reason: Constipation Melatonin (Melatonin 3 Mg Tablet) 6 mg PO BEDTIME PRN PRN Reason: Insomnia Ondansetron HCl (Ondansetron Hcl 4 Mg/2 Ml Vial) 4 mg IVPUSH Q8H PRN PRN Reason: Nausea and Vomiting Last Admin: 08/21/24 05:04 Dose: 4 mg Documented By: GARO Oxycodone HCl (Oxycodone Hcl Immed Release 5 Mg Tablet) 5 mg PO Q4H PRN PRN Reason: Pain, Moderate(Pain Scale 4-6) Last Admin: 08/20/24 22:26 Dose: 5 mg Documented By: GARO Oxycodone HCl (Oxycodone Hcl Immed Release 5 Mg Tablet) 10 mg PO Q4H PRN PRN Reason: Pain, Severe (Pain Scale 7-10) Last Admin: 08/22/24 07:33 Dose: 10 mg Documented By: MARVEL Sodium Chloride (0.9 % Sodium Chloride Flush 3 Ml Syringe) [address] [facility] Last Admin: 08/23/24 09:48 Dose: 3 ml Documented By: DIONICIO Labs 08/21/24 06:31 08/21/24 15:47 Procedures Date of Service Date of Service: 08/23/24 Progress Note: A&P Assessment and plan (1) Bile leak, postoperative: Status: Acute Assessment and Plan: 44-year-old male with the acute cholecystitis underwent laparoscopic to open cholecystectomy with bile duct leak noted intraoperative repair but then requiring postop ERCP with stent placement. Labs all normal feeling better output through the CHRISTOPHER drain much decreased. We will continue with slow advancement of p.o. diet bowel regimen ambulation pain control antibiotics. Time Spent With Patient Time: Total time managing care of this patient today ____ minutes. Quality Stroke Does the patient have a stroke diagnosis?: No VTE Prior VTE?: No VTE Risk Level:: Surgical - low VTE Device Contraindication: N/A - Device Ordered VTE Drug Contraindication: Treatment Not Indicated
[2024-08-23 19:17] VITALS: BP 124/66; PULSE 104; RESP 16; TEMP 36.6; O2SAT 95
[2024-08-23] MEDS: oxyCODONE HCl Immed Release 5 MG TABLET 10 MG PO (19:32)
[2024-08-23] MEDS: Docusate Sodium 100 MG CAPSULE PO (19:32)
[2024-08-23] MEDS: polyethylene glycoL 3350 17 GM POWD.PACK PO (19:34)
[2024-08-24] VITALS (7 sets, daily range): BP systolic 118–132; BP diastolic 65–78; PULSE 74–86; RESP 16–20; TEMP 36–36.8; O2SAT 95–98
[2024-08-24] MEDS: 0.9 % Sodium Chloride Flush 3 ML SYRINGE IVFLUSH ×4 (00:05→23:52)
[2024-08-24] MEDS: Calcium Carbonate 750 MG TAB.CHEW PO ×2 (00:35→11:03)
[2024-08-24] MEDS: Acetaminophen 1,000 MG/100 ML PIGGYBACK 400 MG IV ×4 (02:41→20:24)
[2024-08-24] MEDS: Famotidine 20 MG TABLET PO ×2 (08:52→20:25)
[2024-08-24] MEDS: Docusate Sodium 100 MG CAPSULE PO ×2 (08:52→20:25)
[2024-08-24] MEDS: Ketorolac Tromethamine 15 MG/ML VIAL IVPUSH (12:40)
--- NOTE | 2024-08-24 15:24 | P.PNGS_ITS ---
Subjective Subjective Date of Service: 08/24/24 Interval history: Patient complaining of epigastric pain feeling like it has spasms like gas pains. Not doing better with Tums or PPI. Has been passing gas but no bowel movement as yet. We will probably try some Mag citrate. Not feeling nauseated eating okay right upper quadrant pain well controlled Physical Exam 2 Vital Signs: Vital Signs: Last Vital Signs Temp 98.1 F 08/24/24 11:28 Pulse 86 08/24/24 11:28 Resp 16 08/24/24 11:28 BP 120/65 08/24/24 11:28 Pulse Ox 95 08/24/24 11:28 O2 Del Method Room Air 08/24/24 11:28 O2 Flow Rate 1 08/22/24 15:44 FiO2 48 08/21/24 14:08 BMI result Body Mass Index 26.1 Const: General: cooperative, healthy appearing, comfortable, no acute distress and well developed HEENT: Head: Yes normal to inspection Eyes: Other: Nonicteric GI: Other: Abdomen soft mild distention mild tenderness around the incision in the right upper quadrant area no guarding no rebound no peritoneal signs. CHRISTOPHER drain with serous material maybe a little bile tinged incisions look great Objective Data Active Medications Calcium Carbonate (Calcium Carbonate 750 Mg Tab.Chew) 750 mg PO Q4H PRN PRN Reason: Heartburn Last Admin: 08/24/24 11:03 Dose: 750 mg Documented By: DIONICIO Docusate Sodium (Docusate Sodium 100 Mg Capsule) 100 mg PO BID [facility] Last Admin: 08/24/24 08:52 Dose: 100 mg Documented By: DIONICIO Famotidine (Famotidine 20 Mg Tablet) 20 mg PO BID [facility] Last Admin: 08/24/24 08:52 Dose: 20 mg Documented By: DIONICIO Hydromorphone HCl (Hydromorphone Hcl 0.5 Mg/0.5 Ml Syringe) 0.5 mg IVPUSH Q3H PRN; Protocol PRN Reason: Pain, Severe (Pain Scale 7-10) Acetaminophen (Ofirmev) 1,000 mg in 100 mls @ 400 mls/hr IV Q6H [facility] Last Infusion: 08/24/24 14:57 Dose: Infused Documented By: DIONICIO Ketorolac Tromethamine (Ketorolac Tromethamine 15 Mg/Ml Vial) 15 mg IVPUSH Q6H PRN PRN Reason: Pain, Severe (Pain Scale 7-10) Stop: 08/25/24 14:14 Last Admin: 08/24/24 12:40 Dose: 15 mg Documented By: DIONICIO Magnesium Hydroxide (Milk Of Magnesia 30 Ml Oral.Susp) 30 ml PO DAILY PRN PRN Reason: Constipation Melatonin (Melatonin 3 Mg Tablet) 6 mg PO BEDTIME PRN PRN Reason: Insomnia Ondansetron HCl (Ondansetron Hcl 4 Mg/2 Ml Vial) 4 mg IVPUSH Q8H PRN PRN Reason: Nausea and Vomiting Last Admin: 08/21/24 05:04 Dose: 4 mg Documented By: GARO Oxycodone HCl (Oxycodone Hcl Immed Release 5 Mg Tablet) 5 mg PO Q4H PRN PRN Reason: Pain, Moderate(Pain Scale 4-6) Last Admin: 08/20/24 22:26 Dose: 5 mg Documented By: GARO Oxycodone HCl (Oxycodone Hcl Immed Release 5 Mg Tablet) 10 mg PO Q4H PRN PRN Reason: Pain, Severe (Pain Scale 7-10) Last Admin: 08/23/24 19:32 Dose: 10 mg Documented By: SHREYA Sodium Chloride (0.9 % Sodium Chloride Flush 3 Ml Syringe) 3 ml IVFSH [facility] Last Admin: 08/24/24 14:35 Dose: 3 ml Documented By: DIONICIO Labs 08/21/24 06:31 08/21/24 15:47 Microbiology Microbiology Results: Microbiology 08/19/24 12:52 Blood Culture - Final Blood - Venous No growth after 5 days. 08/19/24 12:54 Blood Culture - Final Blood - Venous No growth after 5 days. Procedures Date of Service Date of Service: 08/24/24 Progress Note: A&P Assessment and plan (1) Bile leak, postoperative: Status: Acute Assessment and Plan: 44-year-old male status post lap converted to open cholecystectomy and then ERCP with stent for postop bile leakage from the gallbladder fossa. Overall doing well from this perspective but having some epigastric cramping sharp pain which probably secondary to his constipation since he has not had a bowel movement since before surgery. We have tried him on some milk of magnesia some MiraLax some stool softeners but we will try some Mag citrate now. Plan to continue with clear liquids Hep-Lock Mag citrate antibiotics ambulate. We will advance his diet once he has a good bowel movement and switch to p.o. pain meds and hopefully plan to DC home tomorrow. He understands and agrees Time Spent With Patient Time: Total time managing care of this patient today ____ minutes. Quality Stroke Does the patient have a stroke diagnosis?: No VTE Prior VTE?: No VTE Risk Level:: Surgical - low VTE Device Contraindication: N/A - Device Ordered VTE Drug Contraindication: Treatment Not Indicated
[2024-08-24] MEDS: Magnesium Citrate 300 ML SOLUTION 120 ML PO (18:23)
[2024-08-25 04:00] VITALS: BP 122/74; PULSE 72; RESP 18; TEMP 36.3; O2SAT 94
--- NOTE | 2024-08-25 07:09 | PC.NURSE ---
This public relations writer assumed care of this patient at 23:00. Please see shift assessments, tasks, and MAR for full details. Handoff report given to oncoming RN.
[2024-08-25 07:34] VITALS: BP 115/64; PULSE 84; RESP 16; TEMP 37; O2SAT 96
--- NOTE | 2024-08-25 08:30 | PM.PNGS ---
Subjective Subjective Date of Service: 08/25/24 Interval history: Patient feels improved, multiple BMs after magcitrate. Physical Exam Vital Signs: Vital Signs: Last Vital Signs Temp 98.6 F 08/25/24 07:34 Pulse 84 08/25/24 07:34 Resp 16 08/25/24 07:34 BP 115/64 08/25/24 07:34 Pulse Ox 96 08/25/24 07:34 O2 Del Method Room Air 08/25/24 07:34 O2 Flow Rate 1 08/22/24 15:44 FiO2 48 08/21/24 14:08 BMI result Body Mass Index 26.1 Const: General: comfortable Nutritional Appearance: well nourished Orientation/consciousness: patient oriented x3 Eyes: Sclerae: sclerae normal GI: Other: incision clean and intact without redness or discharge, CHRISTOPHER with this serous fluid. Skin: Other: warm, dry normal color, no rash Neuro: General: patient oriented x3 Objective Data Active Medications Calcium Carbonate (Calcium Carbonate 750 Mg Tab.Chew) 750 mg PO Q4H PRN PRN Reason: Heartburn Last Admin: 08/24/24 11:03 Dose: 750 mg Documented By: DIONICIO Docusate Sodium (Docusate Sodium 100 Mg Capsule) 100 mg PO BID [facility] Last Admin: 08/24/24 20:25 Dose: 100 mg Documented By: DAYSI Famotidine (Famotidine 20 Mg Tablet) 20 mg PO BID [facility] Last Admin: 08/24/24 20:25 Dose: 20 mg Documented By: DAYSI Hydromorphone HCl (Hydromorphone Hcl 0.5 Mg/0.5 Ml Syringe) 0.5 mg IVPUSH Q3H PRN; Protocol PRN Reason: Pain, Severe (Pain Scale 7-10) Acetaminophen (Ofirmev) 1,000 mg in 100 mls @ 400 mls/hr IV Q6H [facility] Last Admin: 08/25/24 03:32 Dose: Not Given Documented By: GARO Non-Admin Reason: max dose already given in 24 hr; held Ketorolac Tromethamine (Ketorolac Tromethamine 15 Mg/Ml Vial) 15 mg IVPUSH Q6H PRN PRN Reason: Pain, Severe (Pain Scale 7-10) Stop: 08/25/24 14:14 Last Admin: 08/24/24 12:40 Dose: 15 mg Documented By: DIONICIO Magnesium Hydroxide (Milk Of Magnesia 30 Ml Oral.Susp) 30 ml PO DAILY PRN PRN Reason: Constipation Melatonin (Melatonin 3 Mg Tablet) 6 mg PO BEDTIME PRN PRN Reason: Insomnia Ondansetron HCl (Ondansetron Hcl 4 Mg/2 Ml Vial) 4 mg IVPUSH Q8H PRN PRN Reason: Nausea and Vomiting Last Admin: 08/21/24 05:04 Dose: 4 mg Documented By: GARO Sodium Chloride (0.9 % Sodium Chloride Flush 3 Ml Syringe) 3 ml IVFLUSH [facility] Last Admin: 08/24/24 23:52 Dose: 3 ml Documented By: GARO Labs 08/21/24 06:31 08/21/24 15:47 Microbiology Microbiology Results: Microbiology 08/19/24 12:52 Blood Culture - Final Blood - Venous No growth after 5 days. 08/19/24 12:54 Blood Culture - Final Blood - Venous No growth after 5 days. Procedures Date of Service Date of Service: 08/25/24 Progress Note: A&P Assessment and plan (1) Acute cholecystitis: Status: Acute (2) S/P cholecystectomy: Status: Acute Plan Patient much improved this morning with minimal incisional pain, tolerating po without nausea or vomiting. CHRISTOPHER with serous fluid only. Plan discharge to home follow up in office in one week. ERCP in 6-8 weeks. Time Spent With Patient Time: Total time managing care of this patient today ____ minutes. Quality Stroke Does the patient have a stroke diagnosis?: No VTE Prior VTE?: No VTE Risk Level:: Surgical - low VTE Device Contraindication: N/A - Device Ordered VTE Drug Contraindication: Treatment Not Indicated
[2024-08-25] MEDS: Famotidine 20 MG TABLET PO (08:38)
[2024-08-25] MEDS: 0.9 % Sodium Chloride Flush 3 ML SYRINGE IVFLUSH (08:39)
--- NOTE | 2024-08-25 09:08 | MHC.CM.PN ---
pt dcd home self care
[2024-08-25 10:21] VITALS: BP 130/67; PULSE 92; RESP 16; TEMP 36.8; O2SAT 94
--- NOTE | 2024-08-25 10:40 | P.DS_ITS ---
DS: Providers Provider Date of Service: 08/25/24 Date of admission: 08/19/24 22:57 Date of discharge: 08/25/24 Primary care physician: Gene Rivera MD Attending physician on admission: Mirtha Enriquez Consults: 08/21/24 07:41 Consult to Gastroenterology Routine Consulting Provider: Maged Chandra Reason for consultation: s/p cholecystectomy, ?bile leak Has provider been notified: No 08/21/24 14:25 Consult to Hospitalist Routine Comment: Consulting Provider[place] [facility] Reason For Exam: Increased O2 requirement Attending physician on discharge: Celso Ross DS: Diagnosis Discharge Diagnosis (1) Acute cholecystitis: Status: Acute (2) S/P cholecystectomy: Status: Acute DS: Summary Hospital Course Hospital Course: HPI AT ADMISSION: Miguel Whitaker is a 44 year old male who was in the emergency room a couple days ago complaining abdominal pain right upper quadrant pain in the CT scan of the abdomen was carried out after labs were all normal but it did show that there was maybe some inflammatory changes around the gallbladder which was distended and that he may have had some biliary disease. He did improve clinically and so was discharged from the emergency room with the plan being to follow up with the surgeons as an outpatient. This was the plan however yesterday into today he started having more abdominal pain which was worse with some nausea and little vomiting and as a result he returned to the emergency room. Here his labs were still within normal limits but was tender in the right upper quadrant an ultrasound shows some inflammatory thickened changes around the gallbladder with a positive Baldwin sign. HOSPITAL COURSE: He was admitted to the surgical service for further treatment of the acute cholecystitis. It was recommended to proceed with laparoscopic cholecystectomy and was added onto the OR schedule for that day. On 08/19/24, laparoscopic converted to open cholecystectomy with cholangiogram was performed by Dr. Enriquez without immediate complication. CHRISTOPHER drain was left in place. He tolerated the procedure well. On POD #2, he had increased RUQ/right sided pain with high bilious CHRISTOPHER drain output. GI was consulted. CT scan abd/pelvis was performed for bile leak and possible biloma which showed atelectasis, small bowel dilatation without evidence of a loculated fluid collection. On 08/21/24, endoscopic retrograde cholangiopancreatography with intraop cholangiogram, sphincterotomy and stent placement for the bile leak was performed by Dr. Blancas. He did remain on supplemental O2 post procedure likely due to atelectasis and incentive spirometer use was encouraged and his oxygen was slowly weaned. His activity was increased. His diet was slowly advanced to clears, full liquids and then solids. His CHRISTOPHER drain had low nonbilious output. His pain improved. He was started on a bowel regimen. On the day of discharge, robert ridley was tolerating a solid diet without nausea or vomiting. His pain was well controlled. He was ambulating without difficulty and passing flatus. He was hemodynamically stable and his abdomen was benign with clean incisions and nonbilious CHRISTOPHER output. He was discharged to home on 08/25/24 in stable condition with the CHRISTOPHER drain in place. He is to follow up in the office in 1 week. He will need f/u with GI for eventual stent removal. Status at Discharge Functional status at discharge: independent ambulation Overall status at discharge: patient is progressing back to baseline Time Attestation Discharge Coordination Time (in mins): 45 Quality: Safe Use of Opioids Does Pt have an Active Cancer Diagnosis on the Problem List?: No Quality: Stroke Does the patient have a stroke diagnosis?: No Physical Exam Vital Signs: Vital Signs: Last Vital Signs Temp 98.2 F 08/25/24 10:21 Pulse 92 08/25/24 10:21 Resp 16 08/25/24 10:21 BP 130/67 08/25/24 10:21 Pulse Ox 94 08/25/24 10:21 O2 Del Method Room Air 08/25/24 10:21 O2 Flow Rate 1 08/22/24 15:44 FiO2 48 08/21/24 14:08 BMI result Body Mass Index 26.1 Const: General: comfortable, no acute distress and alert Orientation/consciousness: patient oriented x3 Resp: Effort & Inspection: normal respiratory effort GI: Other: CHRISTOPHER drain scant serosanguineous Inspection: No distended and Yes incision (clean) Palpation (GI): Soft to palpation and Tenderness to palpation present (GI) (mild incisional) Skin: General skin exam: no rashes or lesions noted and no jaundice Neuro: General: patient oriented x3 and moves all extremities DS: Data Data Completed and Pending Pending studies at discharge: Pending at discharge 08/19/24 22:06 Surgical [PTH] Routine Discharge Plan Discharge Anticipated Discharge Date/Time: 08/25/24 08:24 Patient Disposition: Home, Self-Care Discharge Diagnosis: s/p cholecystectomy Referrals: Leila Blancas MD [Physician] - 1 Month Celso Ross MD [Physician] - 1 Week Gene Rivera MD [Primary Care Provider] - 1 Week Discharge Medications: New hydromorphone [Dilaudid] 2 mg tablet 2 mg PO Q6H PRN (Reason: pain (scale score 7-10)) Qty: 10 0RF Rx Instructions: Partial Fill upon patient request. Continued acetaminophen 500 mg Tablet 500 mg PO DAILY PRN (Reason: Pain) dicyclomine 10 mg capsule 10 mg PO TID PRN (Reason: IBS) simethicone 80 mg Tablet,Chewable 80 mg PO BEDTIME PRN (Reason: Gas Relief) Discharge Orders: Discharge Order (Routine); Ordered 08/25/24 Ordered By: Celso Ross Diet: Low fat, low cholesterol Activity on Discharge: No heavy lifting Stand Alone Forms: Patient Portal Discharge page Print Language: Romansh Activity Restrictions/Additional Instructions: If the incision area is tender, you may apply an ice pack for short intervals (No more than 20 minutes on, followed by at least 20 minutes off). Do not apply heat. Do not use creams, lotions, or topical antibiotics. These can cause infection or allergic reaction. Ok to shower. You have marc closing your incision and these will be removed approximately 10-14 days after surgery. NO HEAVY LIFTING (>10lbs) or strenuous activity. Follow up in office with Dr. Ross in 1 week. ([phone]) F/u with your PCP. F/u with Dr. Blancas (GI) for stent removal. Call Your Doctor If: -Your temperature exceeds 101.5? F -You experience excessive pain or swelling -You have an unexpected reaction to medication -You have excessive bleeding -You experience continued vomiting/nausea -Your incision begins to separate -Your incision shows signs of infection such as increased redness, swelling, excessive pain, drainage (light blood or clear fluid is normal) or heat Care Plan Goals: Return to baseline health and resume normal activities following recovery period. Eventual stent removal. Health Concerns: Acute cholecystitis Bile leak Plan of Treatment: s/p open cholecystectomy s/p ERCP with stent placement f/u in office in 1 week f/u with GI for stent removal Assessment: Improved
== END 2024-08-25 10:59 | disposition home or self-care (01) | DRG 263 ==
LOC: HO.ED 16:12 → HO.SSS 18:47 → HO.S3 08-20 14:59
PROVIDERS: Internal Medicine Gastroenterology; Physician Assistant Medical; Physician Assistant Surgical; Admitting Provider Surgery; Emergency Provider Emergency Medicine; PCP Internal Medicine; Visit Provider Surgery
PROC: 0FT44ZZ Resection of Gallbladder, Percutaneous Endoscopic Approach (ICD-10-PCS; CPT 47562; principal; 2024-08-19 17:00)
PROC: 0F798DZ Dilation of Common Bile Duct with Intraluminal Device, Via Natural or Artificial Opening Endoscopic (ICD-10-PCS; CPT 43260; principal; 2024-08-21 12:30)
DX: K80.01 Calculus of gallbladder with acute cholecystitis with obstruction (principal); J96.01 Acute respiratory failure with hypoxia; K91.89 Other postprocedural complications and disorders of digestive system; K56.7 Ileus, unspecified; G89.18 Other acute postprocedural pain; J98.11 Atelectasis; Z79.899 Other long term (current) drug therapy
CPT/HCPCS: 43274; 47562; 36415; 71045; 71046; 74018; 74177; 76705; 80048; 80053; 80076; 83605; 83690; 83735; 83880; 85025; 87040; 88304; 88341; 88342; 88360; 99221; 99285; C2625; J0131; J0690; J1100; J1610; J1790; J1885; J2003; J2004; J2250; J2270; J2405; J2543; J2704; J3010; Q9967

== ENCOUNTER → 2024-08-19 12:30 | Outpatient (BNV) | payer OTHER, SELFPAY | PROVIDERS: Emergency Provider Emergency Medicine; PCP Internal Medicine; Visit Provider Radiology Diagnostic Radiology | DX: R10.11 Right upper quadrant pain (principal) | CPT/HCPCS: 76705 ==

== ENCOUNTER → 2024-08-19 13:39 | Outpatient (BNV) | payer OTHER, SELFPAY | PROVIDERS: Emergency Provider Emergency Medicine; PCP Internal Medicine; Visit Provider Surgery | DX: Z90.49 Acquired absence of other specified parts of digestive tract (principal); K81.0 Acute cholecystitis | CPT/HCPCS: 47562; 99024; 99223 ==

== ENCOUNTER 2024-08-19 22:57 | Outpatient (BNV) | payer OTHER, SELFPAY | END 2024-08-21 10:17 | PROVIDERS: Admitting Provider Surgery; Emergency Provider Emergency Medicine; PCP Internal Medicine; Visit Provider Radiology Diagnostic Radiology | DX: R10.9 Unspecified abdominal pain (principal) | CPT/HCPCS: 71045; 74018; 74177 ==

== ENCOUNTER 2024-08-19 22:57 | Outpatient (BNV) | payer OTHER, SELFPAY | END 2024-08-22 07:00 | PROVIDERS: Admitting Provider Surgery; Emergency Provider Emergency Medicine; PCP Internal Medicine; Visit Provider Radiology Diagnostic Radiology | DX: R10.9 Unspecified abdominal pain (principal) | CPT/HCPCS: 71046 ==

== ENCOUNTER → 2024-08-19 22:57 | Outpatient (BNV) | CPT/HCPCS: 99232 ==

== ENCOUNTER → 2024-08-19 22:57 | Outpatient (BNV) | payer OTHER, SELFPAY | PROVIDERS: Admitting Provider Surgery; Emergency Provider Emergency Medicine; PCP Internal Medicine; Visit Provider Physician Assistant Medical | DX: R09.02 Hypoxemia (principal) | CPT/HCPCS: 99232 ==

== ENCOUNTER 2024-09-02 13:29 | Outpatient (AMB) | payer OTHER, SELFPAY ==
--- NOTE | 2024-09-02 13:33 | MHC.OFFVIS ---
Vital Signs 09/02/24 13:39 Height 5 ft 8 in Weight 172 lb BMI 26.1 BP 120/73 Blood Pressure Location Lt brachial Position Sitting Pulse 116 H Intake Visit Reasons: s/p open cholecystectomy & ERCP with stent Intake Note: Patient is seen in office for post op assessment post open cholecystectomy with cholangiogram. Pt c/o: denies any concerns at the time of visit surgery:08/19/24 Dr Enriquez Allergies codeine Allergy (Severe, Verified 08/21/24 09:56) Anaphylaxis Medication List - Last Reconciled 09/02/24 by Celso Ross MD acetaminophen 500 mg PO DAILY PRN dicyclomine 10 mg PO TID PRN hydromorphone (Dilaudid) 2 mg PO Q6H PRN simethicone 80 mg PO BEDTIME PRN HPI Comments Details: 44-year-old male patient status post laparoscopic converted to open cholecystectomy for acute cholecystitis due to cholelithiasis on 08/19/2024. Postoperatively he developed a bile leak which required a ERCP with stent placement. His drain has been draining mainly minimal serous fluid without evidence of bile. In generally feels well and is not taking any pain medication at this time. [facility] Medical History Hypercholesteremia Epilepsy Surgical History History of ERCP (08/21/24) History of cholecystectomy (08/19/24) H/O eye surgery H/O wisdom tooth extraction Social History Household Members: None Housing: House Are you a primary health care specialist to a significant other at home: No Do you presently have visiting nurse or other home services: No Alcohol intake: current Alcohol intake frequency: holidays/special occasions only Patient Tobacco Use Status: Never used Tobacco service: No Physical Exam Vital Signs: Last Vital Signs Pulse 116 H 09/02/24 13:39 BP 120/73 09/02/24 13:39 BMI result Body Mass Index 26.1 Const General: no acute distress Nutritional Appearance: well nourished Orientation/consciousness: patient oriented x3 Resp Effort & Inspection: normal respiratory effort GI Other: Well-healed Kang incision. CHRISTOPHER in place with minimal serous fluid, nonbilious. [place] were removed and drain removed. Wounds were found to be well healed. Skin Other: Warm, dry, normal color Neuro General: patient oriented x3 Extrem Other: No edema Assessment & Plan Assessment & Plan (1) S/P cholecystectomy: Code(s): Z90.49 - Acquired absence of other specified parts of digestive tract Category: Surgical (2) Bile leak, postoperative: Code(s): K91.89 - Other postprocedural complications and disorders of digestive system; K83.8 - Other specified diseases of biliary tract Category: Medical Plan 44-year-old male patient status post lap converted to open cholecystectomy, ERCP with stent placement. He is doing well and his wounds are healing nicely. He has a follow-up appointment with Gastroenterology for stent removal after 6-8 weeks. He should follow up in our office in approximately 1 month for final postoperative visit. He is welcome to call sooner for any new concerns. Coding Level of Care Code Global (84178) Diagnoses S/P cholecystectomy Z90.49 Bile leak, postoperative K91.89; K83.8
[2024-09-02 13:39] VITALS: BP 120/73; PULSE 116; BMI 26.1
--- OUTSIDE RECORDS SUMMARY | 2024-09-02 14:24 | XMS_ITS | Clinical Summary ---
Author Organization [facility] Address [address] [place] [address] Care Team Providers Care Leather Softener Name Role Phone Iker Porras MD Primary [...] Resolved Date Environmental allergies 02/07/2018 0807/2017 Seizures ([facility]) 02/07/2018 8 Immunizations Name Administration Dates Next [...] Plan of Treatment Not on file Insurance [facility] [place]AF[place] Care Teams Leather Softener Relationship Specialty Start Date End Date Iker Porras MD [address] [place] [id number] PCP - General Family Medicine, Physician 11/28/19
== END 2024-09-02 13:50 | disposition home or self-care (01) ==
PROVIDERS: PCP Internal Medicine; Visit Provider Surgery
DX: Z90.49 Acquired absence of other specified parts of digestive tract (principal); K91.89 Other postprocedural complications and disorders of digestive system; K83.8 Other specified diseases of biliary tract
CPT/HCPCS: 99024

== ENCOUNTER → 2024-09-02 13:29 | Outpatient (BNVA) | payer OTHER, SELFPAY | PROVIDERS: PCP Internal Medicine; Visit Provider Surgery | DX: K91.89 Other postprocedural complications and disorders of digestive system (principal); K83.8 Other specified diseases of biliary tract; Z48.815 Encounter for surgical aftercare following surgery on the digestive system; Z90.49 Acquired absence of other specified parts of digestive tract | CPT/HCPCS: 99212 ==

== ENCOUNTER 2024-10-02 08:54 | Day surgery (SDC) | payer OTHER, SELFPAY ==
[2024-09-30 07:24] VITALS: BMI 26.1
--- NOTE | ~2024-10-02 | FL_ITS ---
EXAMINATION: FL GUIDANCE ONLY HISTORY: ERCP COMPARISON: Correlation is made with a CT of the abdomen with contrast dated 625. TECHNIQUE: Fluoroscopy time: 0.5 minutes. Cumulative Dose: 7.58 mGy. DAP: 0.131 mGym2 Images: 5. FINDINGS: Images demonstrate a common bile duct stent in place. Injection of the common bile duct demonstrates the liver to be normal in caliber. No filling defects are identified. FL/FL guidance in OR IMPRESSION: Fluoroscopy during procedure. Please see procedure report for additional information. Electronically signed by: Jean Carlos Tee MD 10/02/2024 02:55 PM EDT
[2024-10-02 11:11] VITALS: BMI 26.8
--- NOTE | 2024-10-02 11:45 | HO.ANESPROP2 ---
Documented by User: Joy Jordan NP 10/01/24 08:50 HPI - Anesthesia Eval Consult details Narrative: 44yo M for ERCP with stent removal s/p ERCP 08/2024 with GA- ETT 7.5 Hx childhood epilepsy. Seizure-free since 5th grade. PMFSH Active Problems Active Problems: All Active Problems Bile leak, postoperative (Acute) S/P cholecystectomy (Acute) Past Medical History Medical History Hypercholesteremia Epilepsy Family History Family history of problems with anesthesia: No Surgical History Surgical History History of ERCP (08/21/24) History of cholecystectomy (08/19/24) H/O eye surgery H/O wisdom tooth extraction History of Problems with Anesthesia: No Social History Social History Household Members: None Housing: House Are you a primary healthcare risk control consultant to a significant other at home: No Do you presently have visiting nurse or other home services: No Alcohol intake: current Alcohol intake frequency: holidays/special occasions only Patient Tobacco Use Status: Never used Tobacco Are you DNR?: No Advance Directives: No Advance Directives Information Provided: Yes service: No Meds Allergies Allergy/AdvReac Type Severity Reaction Status Date / Time codeine Allergy Severe Anaphylaxis Verified 08/21/24 09:56 Home Medications ?Medication ?Instructions ?Recorded ?Confirmed ?Last Taken ?Type acetaminophen 500 mg tablet 500 mg PO DAILY PRN Pain 08/19/24 09/02/24 Unknown History dicyclomine 10 mg capsule 10 mg PO TID PRN IBS 08/19/24 09/02/24 08/19/24 History simethicone 80 mg chewable tablet 80 mg PO BEDTIME PRN Gas Relief 08/19/24 09/02/24 Unknown History Exam Height,Weight and Vital Signs: Height 5 ft 8 in Weight 78 kg Pertinent Lab Results Pertinent Lab Results: Laboratory Tests 08/21/24 08/21/24 06:31 15:47 WBC 9.3 Hgb 12.1 L Hct 37.1 L Plt Count 236 Sodium 139 Potassium 4.3 Chloride 106 Carbon Dioxide 23 BUN 9 Creatinine 0.88 Assessment and Plan Assessment Anesthesia Assessment: Chart Reviewed Final Anesthetic Review Family History of Problems with Anesthesia: No History of Problems with Anesthesia: No Documented by User: Mari Candelario DO 10/02/24 11:48 HPI - Anesthesia Eval Consult details Narrative: 44yo M for ERCP with stent removal s/p ERCP 08/2024 with GA- ETT 7.5. Patient thought to have aspirated during emergence because he had increased oxygen requirements in PACU. Hx childhood epilepsy. Seizure-free since 5th grade. [facility] Past Medical History Medical History Hypercholesteremia Epilepsy Family History Family history of problems with anesthesia: No Surgical History Surgical History History of ERCP (08/21/24) History of cholecystectomy (08/19/24) H/O eye surgery H/O wisdom tooth extraction History of Problems with Anesthesia: No Social History Social History Household Members: None Housing: House Are you a primary healthcare risk control consultant to a significant other at home: No Do you presently have visiting nurse or other home services: No Alcohol intake: current Alcohol intake frequency: holidays/special occasions only Patient Tobacco Use Status: Never used Tobacco Are you DNR?: No Advance Directives: No Advance Directives Information Provided: Yes service: No Meds Allergies Allergy/AdvReac Type Severity Reaction Status Date / Time codeine Allergy Severe Anaphylaxis Verified 08/21/24 09:56 Home Medications ?Medication ?Instructions ?Recorded ?Confirmed ?Last Taken ?Type acetaminophen 500 mg tablet 500 mg PO DAILY PRN Pain 08/19/24 09/02/24 Unknown History dicyclomine 10 mg capsule 10 mg PO TID PRN IBS 08/19/24 09/02/24 08/19/24 History simethicone 80 mg chewable tablet 80 mg PO BEDTIME PRN Gas Relief 08/19/24 09/02/24 Unknown History Exam Exam Date and Time: 10/02/24 1145 Height,Weight and Vital Signs: Height 5 ft 8 in Weight 78 kg Vital Signs Oxygen Delivery Method Room Air 10/02/24 11:17 Oxygen Delivery Method Room Air 10/02/24 11:17 Airway Mallampati Class: I TM Dist: >3cm Neck ROM: Full Loose/Missing/Broken Teeth: Yes (broken front tooth) Heart: S1S2 Lungs: CTAB Assessment and Plan Assessment Anesthesia Assessment: Anesthesia Plan Discussed and Chart Reviewed Final Anesthetic Review Family History of Problems with Anesthesia: No History of Problems with Anesthesia: No NPO: Yes ASA Class: II Final Preanesthetic Review: No Changes in Pt Med Stat, Meds/Allgs Chart Reviewed, Consent Obtained/Reviewed and Anes Risks/Benef Reviewed Patient Risk: Low Procedure Risk: Low Anesthetic Plan Anesthetic Plan: MAC: and Agree w/ Assess. and Plan Disposition: Standard PACU
--- NOTE | 2024-10-02 11:50 | P.HPSUR_ITS ---
Pre-Procedural Eval Section A - 24 Hr Update-Section A only Date of Service: 10/02/24 Section B - Complete if H&P > 30 days Chief Complaint: Perforation of bile duct Details of Present Illness: stent removal Relevant Family History (Specify if Yes): No Relevant Social History: None Present Medications: see Short Stay Collaborative assessment Medical History: Significant History (Hypercholesteremia Epilepsy) History of Previous Operations: Relevant previous surgery/procedure and date(s) (History of ERCP (08/21/24) History of cholecystectomy (08/19/24) H/O eye surgery H/O wisdom tooth extraction) Allergies: Allergies Allergy/AdvReac Type Severity Reaction Status Date / Time codeine Allergy Severe Anaphylaxis Verified 08/21/24 09:56 Review of Systems Sugical H&P ROS: Negative: Constitution, Cardiovascular, Respiratory, Neurolog ical, Psychiatric, Hem-Onc, Allergic/Immunologic, Gastrointestinal, Genitourinary, Musculoskeletal, Integumentary, Endocrine and Eyes/Ears/Nose/Throat Exam Surgical H&P Exam: Normal: HEENT, Normal: Heart, Normal: Lungs, Normal: Extremities, Normal: Abdomen, Normal: Skin and Normal: Neurological Plan Diagnosis/Plan: Unchanged I have reviewed the history and physical and performed a pertinent physical examination on my patient. No changes have occurred unless specified. Time Spent With Patient Time: Total time managing care of this patient today ____ minutes.
[2024-10-02 12:47] VITALS: BP 126/78; PULSE 85; RESP 20; TEMP 36.4; O2SAT 95
--- NOTE | 2024-10-02 12:47 | W.PM.OPN ---
Operative Note Operative Note Date of Service: 10/02/24 Narrative: Description:?Endoscopic retrograde cholangiopancreatography (ERCP) PROCEDURE:?Endoscopic retrograde cholangiopancreatography with stent removal and intra operative cholangiogram INDICATION FOR THE PROCEDURE:?Patient with a history of bile leak and stent placement, here for removal. MEDICATIONS:?General anesthesia. The risks of the procedure were made aware to the patient and consisted of medication reaction, bleeding, perforation, aspiration, and post ERCP pancreatitis. DESCRIPTION OF PROCEDURE:?After informed consent and appropriate sedation, the duodenoscope was inserted into the oropharynx, down the esophagus, and into the stomach. The scope was then advanced through the pylorus to the ampulla. the stent was noted, and a snare was used to grasp it and remove it through the scope. An 12 mm extraction balloon was then used to obtain an occlusion cholangiogram. No stones or debris were noted on sweeping the duct. No bile leak was noted on cholangiogram. FINDINGS: 1. normal study, stent removal RECOMMENDATIONS: 1. Regular diet as tolerated
[2024-10-02 12:52] VITALS: BP 119/75; PULSE 75; RESP 18; O2SAT 94
[2024-10-02 13:02] VITALS: BP 115/78; PULSE 72; RESP 18; O2SAT 95
[2024-10-02 13:17] VITALS: BP 120/78; PULSE 68; RESP 18; O2SAT 97
[2024-10-02 13:32] VITALS: BP 107/70; PULSE 68; RESP 18; TEMP 36.3; O2SAT 98
== END 2024-10-02 14:22 | disposition home or self-care (01) ==
PROVIDERS: PCP Internal Medicine; Visit Provider Internal Medicine Gastroenterology
PROC: (CPT 43260; principal; 2024-10-02 12:00)
DX: K83.2 Perforation of bile duct (principal); Z46.59 Encounter for fitting and adjustment of other gastrointestinal appliance and device; Z90.49 Acquired absence of other specified parts of digestive tract
CPT/HCPCS: 43275; J1610; J2003; J2704; Q9967

== ENCOUNTER → 2024-10-02 08:54 | Outpatient (BNV) | payer OTHER, SELFPAY | PROVIDERS: PCP Internal Medicine; Visit Provider Internal Medicine Gastroenterology | DX: K83.2 Perforation of bile duct (principal) | CPT/HCPCS: 43275 ==

== ENCOUNTER 2024-10-03 08:58 | Outpatient (AMB) | payer OTHER, SELFPAY ==
--- NOTE | 2024-10-03 09:06 | MHC.OFFVIS ---
Vital Signs 10/03/24 09:14 Height 5 ft 8 in Weight 177 lb BMI 26.9 BP 138/76 Blood Pressure Location Lt brachial Position Sitting Pulse 82 Intake Visit Reasons: 1 month s/p open cholecystectomy & ERCP with stent Intake Note: Patient is seen in office for one month follow up, post open cholecystectomy with cholangiogram. Pt c/o: Cold Reduction Roller Required: No Accompanied by: Self / Same As Patient Allergies codeine Allergy (Severe, Verified 10/03/24 09:15) Anaphylaxis Medication List - Last Reconciled 10/03/24 by Celso Ross MD acetaminophen 500 mg PO DAILY PRN dicyclomine 10 mg PO TID PRN hydromorphone (Dilaudid) 2 mg PO Q6H PRN simethicone 80 mg PO BEDTIME PRN HPI Comments Details: 44-year-old male returning 1 month following open cholecystectomy for acute cholecystitis with a postoperative bile leak. He subsequently required ERCP with stent placement. The stent was removed yesterday and the patient tolerated the procedure well. He denies any nausea, vomiting, fever or chills. Does have some numbness below the incision. PFSH Medical History Hypercholesteremia Epilepsy Surgical History History of ERCP (08/21/24) History of cholecystectomy (08/19/24) H/O eye surgery H/O wisdom tooth extraction Social History Household Members: None Housing: House Are you a primary nurse behavioral health care to a significant other at home: No Do you presently have visiting nurse or other home services: No Alcohol intake: current Alcohol intake frequency: holidays/special occasions only Patient Tobacco Use Status: Never used Tobacco service: No Physical Exam Vital Signs: Last Vital Signs Pulse 82 10/03/24 09:14 BP 138/76 10/03/24 09:14 BMI result Body Mass Index 26.9 Const General: no acute distress Nutritional Appearance: well nourished Orientation/consciousness: patient oriented x3 Resp Effort & Inspection: normal respiratory effort GI Other: Well-healed Kang incision. No hernia or infection noted. Abdomen otherwise soft and nondistended. Skin Other: Warm, dry, normal color Neuro General: patient oriented x3 Extrem Other: No edema General: Yes no clubbing, cyanosis or edema Assessment & Plan Assessment & Plan (1) S/P cholecystectomy: Code(s): Z90.49 - Acquired absence of other specified parts of digestive tract Category: Surgical (2) Bile leak, postoperative: Code(s): K91.89 - Other postprocedural complications and disorders of digestive system; K83.8 - Other specified diseases of biliary tract Category: Medical Plan Patient's abdominal wounds are now well healed. His previously placed stent has been removed. He was eating well and denies any nausea or vomiting. He may resume normal activity without restrictions and should follow up as needed. Coding Level of Care Code Global (11603) Diagnoses S/P cholecystectomy Z90.49 Bile leak, postoperative K91.89; K83.8
[2024-10-03 09:14] VITALS: BP 138/76; PULSE 82; BMI 26.9
== END 2024-10-03 09:28 | disposition home or self-care (01) ==
LOC: HO.HGS 08:59
PROVIDERS: PCP Internal Medicine; Visit Provider Surgery
DX: Z90.49 Acquired absence of other specified parts of digestive tract (principal); K91.89 Other postprocedural complications and disorders of digestive system; K83.8 Other specified diseases of biliary tract
CPT/HCPCS: 99024

== ENCOUNTER → 2024-10-03 08:58 | Outpatient (BNVA) | payer OTHER, SELFPAY | PROVIDERS: PCP Internal Medicine; Visit Provider Surgery | DX: K91.89 Other postprocedural complications and disorders of digestive system (principal); K83.8 Other specified diseases of biliary tract; Z90.49 Acquired absence of other specified parts of digestive tract | CPT/HCPCS: 99212 ==